=== PATIENT | female | born 1945 | race African-American/Black ===

== ENCOUNTER → 2021-01-07 15:01 | Outpatient (BNVA) | payer MEDICAID, SELFPAY | PROVIDERS: PCP Internal Medicine; Visit Provider Nurse Practitioner Family | DX: M25.552 Pain in left hip (principal); I10 Essential (primary) hypertension; L89.159 Pressure ulcer of sacral region, unspecified stage; Z99.3 Dependence on wheelchair; Z79.899 Other long term (current) drug therapy | CPT/HCPCS: 99202 ==

== ENCOUNTER 2021-03-11 18:51 | Outpatient (REF) | payer MEDICAID, SELFPAY ==
--- NOTE | ~2021-03-11 | MR_ITS ---
EXAMINATION: MR BRAIN WITHOUT CONTRAST CLINICAL INFORMATION: Parkinson's disease. Cognitive function abnormalities. COMPARISON: None available. TECHNIQUE: MRI of the brain was obtained using routine sequences without contrast. FINDINGS: No focal restricted diffusion is demonstrated to suggest acute or subacute cerebral ischemia. No evidence of acute or chronic hemorrhagic products on heme-sensitive imaging. Scattered periventricular, deep white matter, and brainstem T2 FLAIR hyperintensities consistent with mild to moderate underlying microangiopathy. Proportional prominence of the ventricles and sulcal spaces without evidence of obstructive hydrocephalus. No abnormal mass effect. No midline shift. Normal appearance of the pituitary gland. Normal positioning of the cerebellar tonsils. Normal arterial and venous vascular flow voids are present. Normal, homogeneous marrow signal. Mild mucosal thickening of the paranasal sinuses. No signal abnormalities within the mastoids. MR/MR head/brain wo con IMPRESSION: 1. No acute intracranial abnormalities. 2. Mild to moderate underlying microangiopathy and generalized cerebral volume loss.
== END 2021-03-11 18:52 | disposition home or self-care (01) ==
LOC: HO.MRI 18:51
PROVIDERS: PCP Internal Medicine; Visit Provider Psychiatry & Neurology Neurology
DX: G20 Parkinson's disease (principal); R41.89 Other symptoms and signs involving cognitive functions and awareness; R32 Unspecified urinary incontinence
CPT/HCPCS: 70551

== ENCOUNTER 2021-03-24 16:25 | Outpatient (REF) | payer MEDICAID, SELFPAY ==
[2021-03-24 18:00] LABS: Vitamin B12 1260 pg/mL (200-900)
[2021-03-24 18:19] LABS: Erythrocyte Sedimentation Rate 7 MM/HR (0-20)
== END 2021-03-24 16:26 | disposition home or self-care (01) ==
LOC: HO.LAB 16:25
PROVIDERS: PCP Internal Medicine; Visit Provider Psychiatry & Neurology Neurology
DX: G20 Parkinson's disease (principal)
CPT/HCPCS: 36415; 82550; 82607; 85652

== ENCOUNTER 2024-09-05 16:13 | Outpatient (AMB) | payer MEDICARE, MEDICAID, SELFPAY ==
--- NOTE | 2024-09-05 16:20 | A.OFFVIS_ITS ---
Intake Visit Reasons: 1 YR/CPS Allergies No Known Allergies Allergy (Verified 05/17/24 15:32) Medication List - Last Reconciled 09/05/24 by Preet Gunter MD aspirin 81 mg PO Q3W atorvastatin (Lipitor) 10 mg PO Q3W carbidopa-levodopa 25-250 mg 2 tabs PO TID divalproex 250 mg PO DAILY levothyroxine (Tirosint) 75 mcg PO DAILY losartan 50 mg PO DAILY HPI Comments Details: 79 yo man woman with short term memory problems, fluctuating mental status regarding memory, difficulty walking with parkinsonian features, benign visual hallucinations, and sometimes fluctuating mood with agitation. She also has complex partial seizure disorder (shaking and confusion), and left sided ptosis. She was seen two hours after the dose. 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 HEENT:?No headache, vision changes, hearing loss, nasal congestion, sore throat. Neurological:?Difficulty walking and balancing. Psychiatric:?Visual hallucinations. Endocrine:?No heat/cold intolerance, polydipsia, polyuria, or hair/skin changes. Hematologic/Lymphatic:?No easy bruising, bleeding, or lymphadenopathy. Integumentary (Skin):?No rash, lesions, itching, or color changes. ? Physical Exam Neuro Other: Mental Status: Alert and oriented to person, place, and time. Cranial Nerves: CN II: Visual rodriges full to confrontation, visual acuity intact. CN III, IV, : Pupils equal, round, reactive to light and accommodation. Extraocular movements are normal. CN V: Facial sensation is normal. CN VII: Facial movements symmetrical. CN VIII: Hearing intact to bedside conversation is normal. CN IX, X: Palate elevates symmetrically. CN XI: Shoulder shrug and head turn symmetrical. CN XII: Tongue midline without atrophy or fasciculations. Gait and Station: Mild gait ataxia Extrapyramidal: Decreased facial exp and blinking. Mild gait ataxia. Speech: Normal; no dysarthria or tremor. Assessment & Plan Assessment & Plan (1) Complex partial seizure disorder: Code(s): G40.209 - Localization-related (focal) (partial) symptomatic epilepsy and epileptic syndromes with complex partial seizures, not intractable, without status epilepticus Category: Medical (2) Parkinson disease: Comment: Ach R Abs at [facility] in July 2022: all three ok NCV/EMG LEs at off in Jan 2021: Bilateral moderately severe peroneal neurpathy. EEG at off in Jan 2021: WNL MRI brain WO at [facility] in Jan 2021: mild MVD, mild atrophy. Code(s): G20.A1 - Parkinson's disease without dyskinesia, without mention of fluctuations Category: Medical Qualifiers: Dyskinesia presence: without dyskinesia Fluctuating manifestations: with fluctuating manifestations Qualified Code(s): G20.A2 - Parkinson's disease without dyskinesia, with fluctuations (3) Dementia with Lewy bodies: Code(s): G31.83 - Neurocognitive disorder with Lewy bodies; F02.80 - Dementia in other diseases classified elsewhere, unspecified severity, without behavioral disturbance, psychotic disturbance, mood disturbance, and anxiety Category: Medical Qualifiers: Dementia severity: moderate Dementia behavioral or psychological symptom: with other behavioral disturbance Qualified Code(s): G31.83 - Neurocognitive disorder with Lewy bodies; F02.B18 - Dementia in other diseases classified elsewhere, moderate, with other behavioral disturbance Plan Impression: a: Dementia with Lewy bodies b: Parkinsonism c: Complex partial seizure disorder d: Benign hallucinations related to dementia Rec: a: DC 25/250 strength carbidopa/levodopa b: Start 50/200 carbidopa/levodopa one tab 3 times a day c: Continue Divalproex acid 250mg one at night d: No med for dementia for now e: Exposure to daylight daily, preferably in am Medications: New divalproex 250 mg PO DAILY 90 tabs 0RF [id number]-lwjhdngc-mctxoewzrn 50-200-200 mg 1 tab PO TID 90 tabs 0RF Coding Level of Care Code Tele Est Pt Level 4 (10413) Diagnoses Complex partial seizure disorder G40.209 Parkinson's disease without dyskinesia, with fluctuating manifestations G20.A2 Dyskinesia presence: without dyskinesia Fluctuating manifestations: with fluctuating manifestations Moderate Lewy body dementia with other behavioral disturbance G31.83; F02.B18 Dementia severity: moderate Dementia behavioral or psychological symptom: with other behavioral disturbance
== END 2024-09-05 16:55 | disposition home or self-care (01) ==
LOC: HO.HSM 16:13
PROVIDERS: PCP Internal Medicine; Visit Provider Psychiatry & Neurology Neurology
DX: G40.209 Localization-related (focal) (partial) symptomatic epilepsy and epileptic syndromes with complex partial seizures, not intractable, without status epilepticus (principal); G20.A2 Parkinson's disease without dyskinesia, with fluctuations; G31.83 Neurocognitive disorder with Lewy bodies; F02.B18 Dementia in other diseases classified elsewhere, moderate, with other behavioral disturbance
CPT/HCPCS: 99214

== ENCOUNTER → 2024-09-05 16:13 | Outpatient (BNVA) | payer MEDICARE, MEDICAID, SELFPAY | PROVIDERS: PCP Internal Medicine; Visit Provider Psychiatry & Neurology Neurology | DX: G40.209 Localization-related (focal) (partial) symptomatic epilepsy and epileptic syndromes with complex partial seizures, not intractable, without status epilepticus (principal); G20.A2 Parkinson's disease without dyskinesia, with fluctuations; G31.83 Neurocognitive disorder with Lewy bodies; F02.B18 Dementia in other diseases classified elsewhere, moderate, with other behavioral disturbance | CPT/HCPCS: 99212 ==

== ENCOUNTER 2024-10-31 15:40 | Outpatient (AMB) | payer MEDICARE, MEDICAID, SELFPAY ==
--- NOTE | 2024-10-31 15:41 | MHC.OFFVIS ---
Intake Visit Reasons: 2M Allergies No Known Allergies Allergy (Verified 05/17/24 15:32) HPI Comments Details: 79 yo man woman with parkinsonism, complex partial seizure disorder (shaking and confusion), probably dementia with Lewy bodies and left sided ptosis. She is presenting with Parkinson's Disease and associated behavioral changes. Her current treatment includes carbidopa/levodopa, but symptoms persist, necessitating dosage adjustments to four times a day starting at 9 AM. The ongoing tremors appear around 4 PM, indicating difficulties in managing rigidities. She also confronts increased defensiveness and argumentativeness. Her Depakote dosage may require adjustment to twice daily, monitoring for adverse effects such as dizziness or sluggishness. Despite the behavioral changes, there is no combative conduct noted. Hyperlipidemia is managed with Lipitor, which is not essential to maintain at this stage. 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 - Behavioral: Reports increased defensiveness and argumentativeness. Assessment & Plan Assessment & Plan (1) Parkinsonism: Code(s): G20.C - Parkinsonism, unspecified Category: Medical Qualifiers: Parkinsonism type: unspecified Qualified Code(s): G20.C - Parkinsonism, unspecified Plan: I discussed the current state of the patient's Parkinson's Disease and associated behavioral changes. We deliberated on increasing carbidopa/levodopa dosage to four times daily to manage symptom surges apparent by late afternoon. Regarding behavioral symptoms, we agreed that Depakote would be taken twice daily, with a monitoring period to note any adverse effects or necessary adjustments. If the increased Depakote dosage does not yield improvement, alternatives like Memantine will be considered. We outlined potential side effects and set a follow-up visit to evaluate the changes. No significant consent issues were noted regarding these medication adjustments. (2) Complex partial seizure disorder: Code(s): G40.209 - Localization-related (focal) (partial) symptomatic epilepsy and epileptic syndromes with complex partial seizures, not intractable, without status epilepticus Category: Medical (3) Dementia with Lewy bodies: Code(s): G31.83 - Neurocognitive disorder with Lewy bodies; F02.80 - Dementia in other diseases classified elsewhere, unspecified severity, without behavioral disturbance, psychotic disturbance, mood disturbance, and anxiety Category: Medical Qualifiers: Dementia severity: moderate Dementia behavioral or psychological symptom: with other behavioral disturbance Qualified Code(s): G31.83 - Neurocognitive disorder with Lewy bodies; F02.B18 - Dementia in other diseases classified elsewhere, moderate, with other behavioral disturbance Plan Impression: a: Dementia with Lewy bodies b: Parkinsonism c: Complex partial seizure disorder d: Benign hallucinations related to dementia Rec: a: Start 50/200 carbidopa/levodopa one tab 4 times a day b: Continue Divalproex acid 250mg one at night c. Memantine 5mg bid, if depakote will not improve behavior Coding Level of Care Code Est Pt Level 4 (12199) Diagnoses Parkinsonism, unspecified Parkinsonism type G20.C Parkinsonism type: unspecified Complex partial seizure disorder G40.209 Moderate Lewy body dementia with other behavioral disturbance G31.83; F02.B18 Dementia severity: moderate Dementia behavioral or psychological symptom: with other behavioral disturbance
--- OUTSIDE RECORDS SUMMARY | 2024-10-31 17:39 | XMS_ITS | Clinical Summary ---
Author Organization [facility] Facility Address [address] [place] [id number] Care Team Providers Care Bag Worker Name Role Phone Jessica Nguyen MD Primary Care Provider [phone] Allergies No known active allergies Medications omeprazole (PriLOSEC) [address] capsule Take 20 mg by mouth 1 (one) time each day Do not crush or chew. Active ferrous sulfate 325 (65 Fe) MG EC tablet Take 325 mg by mouth in the morning and 325 mg at noon and 325 mg in the evening. Take with meals. Do not crush, chew, or split. . Active Multiple Vitamin (Multivitamin Adult) tablet Take 1 tablet by mouth 1 (one) time each day Active carbidopa-levod opa (SINEMET) 25-250 MG per tablet Take 1 tablet by mouth in the morning and 1 tablet at noon and 1 tablet in the evening. 1 Active TURMERIC CURCUMIN PO Take 900 mg by mouth 1 (one) time each day Active POLYETHYLENE GLYCOL 3350 PO Take by mouth if needed Active Camphor-Menthol -Methyl Woody 3.1-6-10 % patch Apply topically if needed Active Diclofenac Sodium 1 % gel Apply topically if needed Active sertraline (ZOLOFT) 25 MG tablet Take 25 mg by mouth 1 (one) time each day 2 Active losartan (COZAAR) 50 MG tablet Take 50 mg by mouth 1 Active acetaminophen (Tylenol 8 Hour Arthritis Pain) 650 MG 8 hr tablet Take 650 mg by mouth every 8 (eight) hours if needed for mild pain Do not crush, chew, or split. 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 Social History Tobacco Use Types Packs/Day Years Used Date Smoking Tobacco: Never Smokeless Tobacco: Never Alcohol Use Standard Drinks/Week Comments Never 0 (1 standard drink = 0.6 oz pur e alcohol) Comments Unknown Sex and Gender Information Value Date Recorded Sex Assigned at Not on file Legal Sex Female 2:47 PM EST Gender Identity Not on file Sexual Orientation Not on file Last Filed Vital Signs Vital Sign Reading Time Taken Comments Blood Pressure 162/80 03/30/2021 9:11 AM EST Pulse 80 03/30/2021 9:11 AM EST Temperature - - Respiratory Rate - - Oxygen Saturation 98% 03/30/2021 9:11 AM EST Inhaled Oxygen Concentration - - Weight 55.3 kg (122 lb) 03/30/2021 9:11 AM EST Height 152.4 cm (5') 03/30/2021 9:11 AM EST Body Mass Index 23.83 03/30/2021 9:11 AM EST Plan of Treatment Health Maintenance Due Date Last Done Comments Pneumococcal Vaccine: 50+ Ye ars (1 of 1 - PCV) 1993 Influenza Vaccine (#1) 2024 Hepatitis B Vaccine Aged Out No longe r eligible based on patient's age to complete this topic Insurance Medicaid [place] Medicaid [place] Care Teams Bag Worker Relationship Specialty Start Date End Date Jessica Nguyen MD [address] [facility] [address] [place] [address] PCP - General Internal Medicine 02/09/21
--- OUTSIDE RECORDS SUMMARY | 2024-10-31 17:39 | XMS_ITS | Encounter Summary ---
Author Organization [facility] Address [address] [place] [address] Care Team Providers Care Live Study Manager Name Role Phone Jessica Nguyen MD Primary Care Provider [phone] Encounter Details Date Type Department Care Team (Late st Contact Info) Description 10/17/2024 Telephone Internal Medicine - [place] [address] [place] [phone] Jessica Nguyen MD [address] [place] [address] Social History Tobacco Use Types Packs/Day Years Used Date Smoking Tobacco: Never Smokeless Tobacco: Never Alcohol Use Standard Drinks/Week Comments Never 0 (1 standard drink = 0.6 oz pur e alcohol) Comments Unknown Sex and Gender Information Value Date Recorded Sex Assigned at Not on file Legal Sex Female 8:26 PM EST Gender Identity Not on file Sexual Orientation Not on file documented as of this encounter Progress Notes * Ashanti Cantu MA - 10/17/2024 4:14 PM EDT PT was seen by All. Please advice roro Soto [phone] Requesting cb regarding high vitamin b12 levels from recent labwork. What are the next steps? * Bhavya Rand - 10/17/2024 3:52 PM EDT roro Soto [phone] Requesting cb regarding high vitamin b12 levels from recent labwork. What are the next steps? Please advise, ty documented in this encounter Plan of Treatment Upcoming Encounters Date Type Department Care Team (Late st Contact Info) Description 08/28/2025 4:00 PM EDT Office Visit Internal Medicine - [place] [address] [facility] [address] [place] [phone] All Parker, LUIS ALBERTO [address] [place] [address] documented as of this encounter Visit Diagnoses Not on filedocumented in this encounter Additional Health Concerns Assessment Noted Time PHQ-9 Depression Total Score: 9 09/18/19 3:38 PM EDT documented as of this encounter Care Teams Live Study Manager Relationship Specialty Start Date End Date Jessica Nguyen MD [address] [facility] [address] [place] [phone] PCP - General Internal Medicine 08/21/24 documented as of this encounter
--- OUTSIDE RECORDS SUMMARY | 2024-10-31 17:39 | XMS_ITS | Clinical Summary ---
Author Organization [address] [place] [address] Address [address] [place] [address] Phone Care Team Providers Care Formulator Compounder Name Role Phone Jessica Nguyen MD Primary Care Provider [phone] Allergies No known active allergies Medications acetaminophen (TYLENOL ARTHRITIS PAIN ORAL) Take by mouth as needed. Active aspirin 81 mg EC tablet Take 1 Tablet by mouth three times a week. Active camphor-methyl salicyl-menthoL (Salonpas) 3.1-10-6 % adhesive patch,medicated Apply topically as needed. Active loratadine (CLARITIN) 10 mg tablet Take 1 Tablet by mouth as needed. 4 Active losartan (COZAAR) 50 mg tablet Take 1 Tablet by mouth as needed. Active multivitamin tablet Take 1 tablet by mouth daily. Active levothyroxine sodium (Tirosint) 75 mcg capsuleIndications :Postoperative hypothyroidism Take 1 capsule (75 mcg total) by mouth 1 (one) time each day. 45 capsule 1 5 Active hydrOXYzine HCL (ATARAX) 10 mg tabletIndications: Anxiety Take 1 tablet (10 mg total) by mouth at bedtime as needed for itching. 30 tablet 11 5 Active busPIRone (BUSPAR) 5 mg tabletIndications: Anxiety Take 1 tablet (5 mg total) by mouth 2 (two) times a day if needed (anxiety). 30 each 11 5 026 Active pilocarpine (Salagen, pilocarpine,) 5 mg tabletIndications: Dry mouth Take 1 tablet (5 mg total) by mouth at bedtime as needed (dry mouth). 30 each 11 5 026 Active divalproex (DEPAKOTE) [address] tablet Take 1 tablet (250 mg total) by mouth 1 (one) time each day. 5 Active glycopyrrolate (ROBINUL) 1 mg tablet TAKE 1 TABLET BY MOUTH TWICE A DAY NEEDED FOR SECRETIONS 5 Active CARBIDOPA-LEVODOPA ORAL Take 200 mg by mouth 3 (three) times a day. Active cholecalciferol (VITAMIN D-3) 50 mcg (2,000 unit) tabletIndications: Vitamin D deficiency Take 1 tablet (2,000 Units total) by mouth 1 (one) time each day. 90 tablet 3 5 Active Active Problems Problem Noted Date Diagnosed Date Gastroesophageal reflux disease 09/26/2024 Iron deficiency anemia 09/26/2024 Hyperlipidemia 08/11/2022 Overview (02/24/2024): Last Assessment & Plan: Her primary care in [place] decreased her atorvastatin to 40 mg 3 days a week because of myalgia side effects on daily dosing, I think this is fine in light of advanced age and comorbidities-continue this regimen Venous insufficiency 08/11/2022 Overview (02/24/2024): -She was having a lot of issues with lower extremity edema. In fact, she was seen in the ER at [facility] on 11/27/2020. At the time, she was probably eating more salt -She actually also had an ultrasound of her lower extremities on 11/28/2020 which was negative for DVTs bilaterally Last Assessment & Plan: Recently well controlled, no further recommendations at this time Dizziness and giddiness 11/06/2021 Overview (09/26/2024): Dizziness and giddiness; Note: Date Diagnosed: 11/06/2021 2:48 PM (R42) Sensorineural hearing loss (SNHL) of both ears 0 11/06/2021 Overview (09/26/2024): Sensorineural hearing loss, bilateral; Note: Date Diagnosed: 11/06/2021 3:10 PM (H90.3) Otalgia of left ear 10/13/2021 Overview (09/26/2024): Otalgia, left ear; Note: Date Diagnosed: 10/13/2021 6:23 PM (H92.02) Postoperative hypothyroidism 08/26/2021 Dyspnea on exertion 05/05/2021 Overview (02/24/2024): -Occurs with activity such as walking with her walker in the house, going up stairs-in retrospect, I think a lot of it had to do with 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 goiter in addition to advanced age, deconditioning- Symptoms greatly improved post thyroidectomy -Has had a recent negative ischemic work-up and reassuring echo during hospitalization at [facility] in March 2021 -Has been gradually developing over several years-denies chest pain symptoms with it -Pharmacologic nuclear stress test on 04/13/2021 showed normal perfusion, normal ejection fraction and regional wall motion, EF calculated at greater than 70% Last Assessment & Plan: Persists only to a minor degree and likely related to aging and deconditioning, patient is euvolemic on exam, no further work-up at this time Type 2 myocardial infarction (CMS/HCC V24, CMS/H CC V28) 05/05/2021 Overview (02/24/2024): Last Assessment & Plan: Continue medical management. No anginal symptoms or evidence of heart failure. Continue atorvastatin 40, baby aspirin. Autonomic neuropathy 03/30/2021 Syncope and collapse 02/06/2021 Overview (02/24/2024): - Negative work-up for cardiac causes, likely secondary to supine hypertension and orthostatic hypotension with possible contribution from Parkinson's disease itself or at least antiparkinsonian drugs -She has had about 3 episodes of syncope dating back to Erica of 2021. The first episode was on November 18. She was sitting down on the couch watching TV. She may have been a bit dehydrated that day. All of a sudden she felt herself getting clammy and her vision went dark. She told her other daughter who is not present. By the time her other daughter turned around, the patient was slumped over. She was very fatigued but did not fully lose consciousness -The second episode happened exactly a month later on December 18. She was again sitting in front of the TV. Her daughter Yara was bringing in a medication that she often has difficulty swallowing. Just the notion of the medication coming towards her made her very anxious. She is apt to get anxious with these types of things. All of a sudden she started hyperventilating and again felt lightheaded, had her vision go dark and slumped over -The third episode happened shortly thereafter on January 03. She was sitting at the breakfast table this time. She suddenly asked her daughter who was standing at the kitchen for a glass of water. The tone of her voice-being very weak and fatigued made her daughter turn around. At that point she noted that the patient had a glazed look in her eye and started to slump over. Again she did not fully lose consciousness this time -As a part of her cardiac work-up related to this, I ordered a Holter monitor to assure that she did not have any high-grade AV block, significant pauses or severe bradycardia contributing to her symptoms as well as an echocardiogram to assess for structural heart disease or other syndrome such as hypertrophic cardiomyopathy given murmur heard on exam -Echocardiogram most recently during her hospitalization at [facility] from 04/12/2021 showed mild, concentric left ventricular hypertrophy with normal LV cavity size and systolic function, normal regional wall motion with an ejection fraction of 55 to 60%, normal RV size and systolic function, no hemodynamically significant valve disease -Holter monitor on 02/06/2021 showed sinus rhythm with an average heart rate of 65 bpm with a range of 43 to 100 bpm with sinus bradycardia for 10-1/2 of the 24 hours but no significant pauses, no high-grade AV block, rare APCs and one atrial pair, frequent PVCs with rare couplets, 1 triplet, rare ventricular bigeminy and trigeminy-overall burden of PVCs only 1.8%, symptoms of shortness of breath on the stairs correlating to normal sinus rhythm - Switched her to ARB for blood pressure control and that to only as needed and we have been more liberal with our targets for blood pressure control-allowing for higher blood pressures at rest of less than 150 or even 160 systolic over 90 diastolic Last Assessment & Plan: No major episodes since our last visit, as needed losartan not really necessary. Continue as needed dosing only. Continue behavioral modifications to the extent that it is possible given the patient's dementia including slow postural changes, adequate oral hydration, avoidance of severely hot or humid temperatures. Hypertension 01/14/2021 Overview (02/24/2024): -Has been seeing Dr. Braga of nephrology-I have his most recent note but do not have the official copy of the 24 amb BP monitor -Her daughter has a copy of the report however and tells me that the average blood pressure over 24 hours was 150/77 mmHg however there are wild swings with some as low as 90 systolic and some is high as 170s to 180s systolic Last Assessment & Plan: As needed losartan as above. Parkinsonism (CMS/HCC V24, CMS/HCC V28) 01/15/20 21 Reflux esophagitis 01/14/2021 Thyromegaly 01/14/2021 Encounters Date Type Department Care Team Description 10/31/2024 Telephone Internal Medicine [facility] [address] [phone] Jessica Nguyen MD 10/18/[facility] [address] [phone] Vinny Lim MD 10/17/2024 Telephone Internal Medicine [facility] [address] [phone] Jessica Nguyen MD 10/17/2024 Telephone Internal Medicine [facility] [address] [phone] Jessica Nguyen MD 09/26/2024 3:45 PM EDT Consult Pulmonolgy [facility] [address] [phone] Vinny Lim MD Snoring (Primary Dx); Chronic fatigue; Primary hypertension 09/24/2024 Telephone Gastroenterology - [place] 175 [facility] 175 [facility] [address] [place] [address] Barbra Augustine PA 09/20/2024 10:20 AM EDT Office Visit [facility] [address] [facility] [address] [place] [phone] Eugenie Quintero MD Syncope and collapse (Primary Dx); Hyperlipidemia, unspecified hyperlipidemia type; Primary hypertension 09/19/2024 3:00 PM EDT Consult Gastroenterology - [place] 175 [facility] 175 [facility] [address] [place] [address] Barbra Augustine PA Oral phase dysphagia (Primary Dx); Parkinsonism, unspecified Parkinsonism type (CMS/HCC V24, CMS/HCC V28); Snoring; Dysphagia, unspecified type 09/17/2024 3:45 PM EDT Office Visit Internal Medicine - [place] 175 [facility] [address] [place] [phone] All Parker NP Primary hypertension (Primary Dx); Hyperlipidemia, unspecified hyperlipidemia type; Hypothyroidism, unspecified type; Parkinsonism, unspecified Parkinsonism type (CMS/HCC V24, CMS/HCC V28); Lewy body dementia, unspecified dementia severity, unspecified whether behavioral, psychotic, or mood disturbance or anxiety (CMS/HCC V24, CMS/HCC V28); Constipation, unspecified constipation type; Seasonal allergies; Generalized weakness; Anxiety; Snoring; Dry mouth; Dysphagia, unspecified type; Screening for ischemic heart disease; Screening for diabetes mellitus; Vitamin B12 deficiency; Vitamin D deficiency; Healthcare maintenance 08/23/2024 Telephone Endocrinology [address] [phone] Ayanna Caputo MD 08/21/2024 4:30 PM EDT Office Visit Endocrinology [address] [phone] Ayanna Caputo MD Postoperative hypothyroidism (Primary Dx) from Last 3 Months Family History Medical History Relation Name Comments No Known Problems Father No Known Problems Mother Relation Name Status Comments Father Mother Social History Tobacco Use Types Packs/Day Years Used Date Smoking Tobacco: Never Smokeless Tobacco: Never Tobacco Cessation:Counseling Given: Not Answered Alcohol Use Standard Drinks/Week Comments Never 0 (1 standard drink = 0.6 oz pur e alcohol) Comments Unknown Sex and Gender Information Value Date Recorded Sex Assigned at Not on file Legal Sex Female 8:26 PM EST Gender Identity Not on file Sexual Orientation Not on file Obstetrics History Last Filed Vital Signs Vital Sign Reading Time Taken Comments Blood Pressure 138/83 09/26/2024 3:45 PM EDT Pulse 63 09/26/2024 3:45 PM EDT Temperature 36.7 C (98 F) 09/26/2024 3:45 PM EDT Respiratory Rate 20 09/26/2024 3:45 PM EDT Oxygen Saturation 100% 09/26/2024 3:45 PM EDT Inhaled Oxygen Concentration - - Weight 54 kg (119 lb) 09/26/2024 3:45 PM EDT Height 148.6 cm (4' 10.5 ) 09/26/2024 3:45 PM ED T Body Mass Index 24.45 09/26/2024 3:45 PM EDT Plan of Treatment Upcoming Encounters Date Type Department Care Team (Late st Contact Info) Description 08/28/2025 4:00 PM EDT Office Visit Internal Medicine - [address] [place] [address] All Parker NP [address] [place] [phone] Health Maintenance Due Date Last Done Comments DTaP,Tdap,and Td Vaccines (1 - Tdap) 1964 Pneumococcal Vaccine: 50+ Years (1 of 1 - PCV) 1993 Zoster Vaccines (1 of 2) 1993 RSV Immunization Adult Patients (1 - 1-dose 75+ series) 2018 Falls Risk Assessment 02/07/2022 Medicare Annual Wellness Visit 02/07/2022 Osteoporosis Screening (Bone Density Screening) 02/07/2022 Social Influencers of Health Screening 02/07/2022 COVID-19 Vaccine ( - 2023-2 5 season) 2024 Influenza Vaccine (#1) 2024 Hypertension/CHF/CAD Annual BMP Blood Test 09/25/2025 09/25/2024, 10/18/2023, 10/18/2023 Cholesterol Screening (Lipid Panel) 09/25/2029 09/25/2024, 08/04/2023 Depression Screening Completed 09/17/2024 HIB Vaccines Aged Out No longer eligi ble based on patient's age to complete this topic HPV Vaccines Aged Out No longer eligi ble based on patient's age to complete this topic Hepatitis A Vaccines Aged Out No long er eligible based on patient's age to complete this topic Hepatitis B Vaccines Aged Out No long er eligible based on patient's age to complete this topic IPV Vaccines Aged Out No longer eligi ble based on patient's age to complete this topic MMR Vaccines Aged Out No longer eligi ble based on patient's age to complete this topic Meningococcal ACWY Vaccine Aged Out N o longer eligible based on patient's age to complete this topic Meningococcal B Vaccine Aged Out No l onger eligible based on patient's age to complete this topic RSV Immunization Patients Under 20 months Aged Out No longer eligible b ased on patient's age to complete this topic Varicella Vaccines Aged Out No longer eligible based on patient's age to complete this topic Procedures Procedure Name Priority Date/Time Associated Diagnosis Comments VITAMIN D 25 HYDROXY Routine 09/25/2024 10:01 AM EDT Vitamin D deficiency VITAMIN B12 Routine 09/25/2024 10:01 AM EDT Vitamin B12 deficiency MAGNESIUM Routine 09/25/2024 10:01 AM EDT Healthcare maintenance THYROID STIMULATING HORMONE WITH REFLEX TO FREE T4 AND FREE T3 Routine 09/25/2024 10:01 AM EDT Hypothyroidism, unspecified type HEMOGLOBIN A1C Routine 09/25/2024 10:01 AM EDT Screening for diabetes mellitus COMPREHENSIVE METABOLIC PANEL Routine 09/25/2024 10:01 AM EDT Healthcare maintenance COMPLETE BLOOD COUNT Routine 09/25/2024 10:01 AM EDT Healthcare maintenance LIPID PANEL WITH REFLEX TO DIRECT LDL Routine 09/25/2024 10:01 AM EDT Screening for ischemic heart disease THYROXINE FREE Routine 09/25/2024 10:01 AM EDT Postoperative hypothyroidism ECG 12-LEAD Routine 09/20/2024 10:40 AM EDT Syncope and collapse THYROID STIMULATING HORMONE Routine 08/21/2024 4:56 PM EDT Postoperative hypothyroidism THYROXINE FREE Routine 08/21/2024 4:56 PM EDT Postoperative hypothyroidism from Last 3 Months Results * Thyroid stimulating hormone with reflex to free t4 and free t3 (09/25/2024 10:01 AM EDT) TSH 2.19 0.40 - 4.00 mcIU/mL LAB CHEMISTRY METHOD 09/25/2024 2:31 PM EDT [facility] Blood Venous blood specimen / Unknown Venipuncture / Unknown 09/25/2024 10:01 AM EDT 09/25/2024 11:17 AM EDT us All Parker NP LAB BLOOD ORDERABLES Final Resul t [facility] [address] [place] [address], [place] [phone] * (ABNORMAL) Lipid panel with reflex to direct LDL (09/25/2024 10:01 AM EDT) Cholesterol 190 0 - 200 mg/dL LAB CHEMISTRY METHOD 09/25/2024 1:04 PM EDT [facility] Triglycerides 53 0 - 150 mg/dL LAB CHEMISTRY METHOD 09/25/2024 1:04 PM EDT [facility] HDL 72 >=40 mg/dL LAB CHEMISTRY METHOD 09/25/2024 1:04 PM EDT [facility] LDL Calculated 107(H) 0 - 100 mg/dL LAB CHEMISTRY METHOD 09/25/2024 1:04 PM EDT [facility] VLDL Cholesterol Hai 10.6 mg/dL LAB CHEMISTRY METHOD 09/25/2024 1:04 PM EDT [facility] Non HDL Chol. (LDL+VLDL) 118 <145 mg/dL LAB CHEMISTRY METHOD 09/25/2024 1:04 PM EDT [facility] Chol/HDL Ratio 2.6 0.0 - 4.4 LAB CHEMISTRY METHOD 09/25/2024 1:04 PM EDT [facility] Blood Venous blood specimen / Unknown Venipuncture / Unknown 09/25/2024 10:01 AM EDT 09/25/2024 11:17 AM EDT All Parker NP LAB BLOOD ORDERABLES Final Resul t Performing Organization Address City/[facility]/ZIP Co de Phone Number [facility] [address] [place] [address], [place] [phone] * (ABNORMAL) Vitamin D 25 hydroxy (09/25/2024 10:01 AM EDT) Pathologist [facility] Vit D, 25-Hydroxy 26.5(L) 30.0 - 80.0 ng/mL LAB CHEMISTRY METHOD 09/25/2024 2:30 PM EDT [facility] Blood Venous blood specimen / Unknown Venipuncture / Unknown 09/25/2024 10:01 AM EDT 09/25/2024 11:17 AM EDT us All Parker NP LAB BLOOD ORDERABLES Final Resul t [facility] [address] [place] [address], [place] [phone] * (ABNORMAL) Complete blood count (09/25/2024 10:01 AM EDT) WBC 6.8 4.8 - 10.8 K/mcL LAB HEMETOLOGY METHOD 09/25/2024 11:[address] [facility] RBC 3.90 3.80 - 4.80 M/mcL LAB HEMETOLOGY METHOD 09/25/2024 11:[address] [facility] Hemoglobin 12.6 11.5 - 16.0 g/dL LAB HEMETOLOGY METHOD 09/25/2024 11:[address] [facility] Hematocrit 39.5 35.0 - 47.0 % LAB HEMETOLOGY METHOD 09/25/2024 11:[address] [facility] MCV 101.3(H) 79.0 - 98.0 FL LAB HEMETOLOGY METHOD 09/25/2024 11:[address] [facility] MCH 32.3(H) 27.0 - 32.0 pcg LAB HEMETOLOGY METHOD 09/25/2024 11:[address] [facility] MCHC 31.9(L) 32.0 - 37.0 g/dL LAB HEMETOLOGY METHOD 09/25/2024 11:[address] [facility] RDW 13.5 11.0 - 15.0 % LAB HEMETOLOGY METHOD 09/25/2024 11:[address] [facility] Platelets 241 130 - 400 K/mcL LAB HEMETOLOGY METHOD 09/25/2024 11:[address] [facility] MPV 10.6 7.0 - 11.0 FL LAB HEMETOLOGY METHOD 09/25/2024 11:[address] [facility] NRBC 0.0 <1.0 % LAB HEMETOLOGY METHOD 09/25/2024 11:[address] [facility] NRBC Absolute 0.00 <0.10 K/mcL LAB HEMETOLOGY METHOD 09/25/2024 11:[address] [facility] Blood Venous blood specimen / Unknown Venipuncture / Unknown 09/25/2024 10:01 AM EDT 09/25/2024 11:18 AM EDT All Parklisha [employer] ENGINEER LAB BLOOD ORDERABLES Final Resul t Performing Organization Address [facility] Co de Phone Number [facility] [address] [place] [address], [place] [phone] * Thyroxine free (09/25/2024 10:01 AM EDT) Only the most recent of2 resultswithin the time period is included. Free T4 1.33 0.70 - 1.80 ng/dL LAB CHEMISTRY METHOD 09/25/2024 2:31 PM EDT [facility] Blood Venous blood specimen / Unknown Venipuncture / Unknown 09/25/2024 10:01 AM EDT 09/25/2024 11:17 AM EDT Ayanna Caputo MD LAB BLOOD ORDERABLES Final Resul t Performing Organization Address [facility] de Phone Number [facility] [address] [place] [address], [place] [phone] * Magnesium (09/25/2024 10:01 AM EDT) Magnesium 2.6 1.9 - 2.6 mg/dL LAB CHEMISTRY METHOD 09/25/2024 12:34 PM EDT [facility] Blood Venous blood specimen / Unknown Venipuncture / Unknown 09/25/2024 10:01 AM EDT 09/25/2024 11:17 AM EDT All Parker W[employer]ING [employer] ENGINEER LAB BLOOD ORDERABLES Final Resul t Performing Organization Address [facility]/ZIP Co de Phone Number [facility] [address] [place] [address], [place] [phone] * Hemoglobin A1c (09/25/2024 10:01 AM EDT) Pathologist [facility] Hemoglobin A1C 5.4 <6.5 % LAB CHEMISTRY METHOD 09/25/2024 1:05 PM EDT [facility] Mean Bld Glu Estim. 108 mg/dL LAB CHEMISTRY METHOD 09/25/2024 1:05 PM EDT [facility] Blood Venous blood specimen / Unknown Venipuncture / Unknown 09/25/2024 10:01 AM EDT 09/25/2024 11:18 AM EDT All Parker NP LAB BLOOD ORDERABLES Final Resul t Performing Organization Address City/[facility]/ZIP Co de Phone Number [facility] [address] [place] [address], [place] [phone] * (ABNORMAL) Vitamin B12 (09/25/2024 10:01 AM EDT) [facility] Vitamin B-12 1,357(H) 250 - 900 pcg/mL LAB CHEMISTRY METHOD 09/25/2024 1:04 PM EDT [facility] Blood Venous blood specimen / Unknown Venipuncture / Unknown 09/25/2024 10:01 AM EDT 09/25/2024 11:17 AM EDT All Parker NP LAB BLOOD ORDERABLES Final Resul t [facility] [address] [place] [address], [place] [phone] * (ABNORMAL) Comprehensive metabolic panel (09/25/2024 10:01 AM EDT) [facility] Sodium 141 133 - 145 mmol/L LAB CHEMISTRY METHOD 09/25/2024 1:04 PM EDT [facility] Potassium 3.8 3.5 - 5.5 mmol/L LAB CHEMISTRY METHOD 09/25/2024 1:[address] [facility] Chloride 107 96 - 110 mmol/L LAB CHEMISTRY METHOD 09/25/2024 1:[address] [facility] CO2 28 21 - 32 mmol/L LAB CHEMISTRY METHOD 09/25/2024 1:[address] [facility] Anion Gap 6 3 - 11 LAB CHEMISTRY METHOD 09/25/2024 1:[address] [facility] Glucose 84 70 - 100 mg/dL LAB CHEMISTRY METHOD 09/25/2024 1:[address] [facility] BUN 12 5 - 25 mg/dL LAB CHEMISTRY METHOD 09/25/2024 1:[address] [facility] Creatinine 0.79 0.50 - 1.10 mg/dL LAB CHEMISTRY METHOD 09/25/2024 1:[address] [facility] eGFR 75 >=60 mL/min/1. 73m2 LAB CHEMISTRY METHOD 09/25/2024 1:[address] [facility] Comment:Calculation based on the Chronic Kidney Disease Epidemiology Collaboration (CKD-EPI) equation refit without adjustment for race. BUN/Creatinine Ratio 15.2 LAB CHEMISTRY METHOD 09/25/2024 1:[address] [facility] Calcium 9.3 8.5 - 10.5 mg/dL LAB CHEMISTRY METHOD 09/25/2024 1:[address] [facility] AST (SGOT) 14 10 - 42 unit/L LAB CHEMISTRY METHOD 09/25/2024 1:[address] [facility] ALT (SGPT) 9(L) 10 - 60 unit/L LAB CHEMISTRY METHOD 09/25/2024 1:[address] [facility] Alkaline Phosphatase 67 42 - 121 unit/L LAB CHEMISTRY METHOD 09/25/2024 1:[address] [facility] Total Protein 6.9 6.0 - 8.0 g/dL LAB CHEMISTRY METHOD 09/25/2024 1:04 PM EDT [facility] Albumin 3.6 3.2 - 5.0 g/dL LAB CHEMISTRY METHOD 09/25/2024 1:04 PM EDT [facility] Total Bilirubin 0.6 0.0 - 1.4 mg/dL LAB CHEMISTRY METHOD 09/25/2024 1:04 PM EDT [facility] Blood Venous blood specimen / Unknown Venipuncture / Unknown 09/25/2024 10:01 AM EDT 09/25/2024 11:17 AM EDT us All Parker NP LAB BLOOD ORDERABLES Final Resul t [facility] [address] [place] [address], [place] [phone] * ECG 12 lead (09/20/2024 10:40 AM EDT) Ventricular Rate ECG 52 BPM GEMUSE Atrial Rate 52 BPM GEMUSE P-R Interval 242 ms GEMUSE QRS Duration 124 ms GEMUSE Q-T Interval 460 ms GEMUSE QTc 427 ms GEMUSE P Wave [place] 66 degrees GEMUSE R [place] 0 degrees GEMUSE T [place] -78 degrees GEMUSE ECG Interpretation Sinus bradycardia with 1st degree A-V block Left ventricular hypertrophy with QRS widening Cannot rule out Septal infarct (cited on or before 27-NOV-2020) ST and T wave abnormality, consider lateral ischemia Abnormal ECG When compared with ECG of 10-APR-2021 21:37, ME interval has increased Vent. rate has decreased BY 31 BPM Nonspecific T wave abnormality now evident in Inferior leads T wave inversion more evident in Anterolateral leads Confirmed by EUGENIE QUINTERO ([id number]) on 09/27/2024 1:07:29 PM GEMUSE 09/20/2024 10:4 0 AM EDT 09/27/2024 1:07 PM EDT us Eugenie Quintero MD ECG ORDERABLES Final Result KE[facility] * (ABNORMAL) Thyroid stimulating hormone (08/21/2024 4:56 PM EDT) TSH 0.37(L) 0.40 - 4.00 mcIU/mL LAB CHEMISTRY METHOD 08/21/2024 7:13 PM EDT [facility] [facility] Blood Venous blood specimen / Unknown Venipuncture / Unknown 08/21/2024 4:56 PM EDT 08/21/2024 4:56 PM EDT us Ayanna Caputo MD LAB BLOOD ORDERABLES Final Resul t [facility] [address] [place] [address], [place] [phone] from Last 3 Months Insurance MEDICARE MEDICAID [place] Care Teams Formulator Compounder Relationship Specialty Start Date End Date Jessica Nguyen MD 175 [facility] [address] [place] [phone] PCP - General Internal Medicine 08/21/24
--- OUTSIDE RECORDS SUMMARY | 2024-10-31 17:39 | XMS_ITS | Encounter Summary ---
Author Organization [facility] Address [address] [place] [address] Care Team Providers Care Abrasives Sales Representative Name Role Phone Jessica Nguyen MD Primary Care Provider Reason for Visit * Reason Onset Date Comments Forms/questionnaires 10/31/2024 Adult [facility] Care Encounter Details Date Type Department Care Team (Late st Contact Info) Description 10/31/2024 Telephone Internal Medicine - [place] [address] [facility] [employer] [facility] [employer] [address] [place] [address] Jessica Nguyen MD [address] [place] [phone] Social History Tobacco Use Types Packs/Day Years [...] as of this encounter Progress Notes * Bhavya Rand - 10/31/2024 4:20 PM EDT Eve with [facility] is re-faxing an order form from 10/26 @5:20 pm of the needs for the ptand requires a PCP's signature. Please advise, rory Cb# [phone] documented in this encounter Plan of Treatment Upcoming Encounters Date Type Department Care Team (Late st Contact Info) Description 08/28/2025 4:00 PM EDT Office Visit Internal Medicine - [place] 175 [facility] [address] [place] [address] All Parker, LUIS ALBERTO [address] [place] [address] documented as of this encounter Visit Diagnoses Not on filedocumented in this encounter Additional Health Concerns Assessment Noted Time PHQ-9 Depression Total Score: 9 09/18/19 25 3:38 PM EDT documented as of this encounter Care Teams Abrasives Sales Representative Relationship Specialty Start Date End Date Jessica Nguyen MD 175 [facility] [address] [place] [address] PCP - General Internal Medicine 08/21/24 documented as of this encounter
== END 2024-10-31 16:55 | disposition home or self-care (01) ==
LOC: HO.HSM 15:40
PROVIDERS: PCP Internal Medicine; Visit Provider Psychiatry & Neurology Neurology
DX: G20.C Parkinsonism, unspecified (principal); G40.209 Localization-related (focal) (partial) symptomatic epilepsy and epileptic syndromes with complex partial seizures, not intractable, without status epilepticus; G31.83 Neurocognitive disorder with Lewy bodies; F02.B18 Dementia in other diseases classified elsewhere, moderate, with other behavioral disturbance
CPT/HCPCS: 99214

== ENCOUNTER → 2024-10-31 15:40 | Outpatient (BNVA) | payer MEDICARE, MEDICAID, SELFPAY | PROVIDERS: PCP Internal Medicine; Visit Provider Psychiatry & Neurology Neurology | DX: G40.209 Localization-related (focal) (partial) symptomatic epilepsy and epileptic syndromes with complex partial seizures, not intractable, without status epilepticus (principal); G20.C Parkinsonism, unspecified; G31.83 Neurocognitive disorder with Lewy bodies; F02.B18 Dementia in other diseases classified elsewhere, moderate, with other behavioral disturbance | CPT/HCPCS: 99212 ==

== ENCOUNTER → 2024-11-21 13:56 | Outpatient (BNVA) | payer MEDICARE, MEDICAID, SELFPAY | PROVIDERS: PCP Internal Medicine; Visit Provider Psychiatry & Neurology Neurology | DX: G20.C Parkinsonism, unspecified (principal); G40.209 Localization-related (focal) (partial) symptomatic epilepsy and epileptic syndromes with complex partial seizures, not intractable, without status epilepticus; G31.83 Neurocognitive disorder with Lewy bodies; F02.B18 Dementia in other diseases classified elsewhere, moderate, with other behavioral disturbance | CPT/HCPCS: 99212 ==

== ENCOUNTER → 2024-11-21 13:56 | Outpatient (AMB) | payer MEDICARE, MEDICAID, SELFPAY ==
--- NOTE | 2024-11-21 14:05 | A.OFFVIS_ITS ---
Intake Visit Reasons: SOONER APPT Allergies No Known Allergies Allergy (Verified 05/17/24 15:32) HPI Comments Details: 79 yo man woman with parkinsonism, complex partial seizure disorder (shaking and confusion), probably dementia with Lewy bodies and left sided ptosis. She is presenting with sleep disorder and related behavioral disturbances. Recently, the patient has experienced significant disruptions in her sleep pattern, failing to sleep for three consecutive nights, leading to increased behavioral disturbances, including a combative incident. These disturbances prompted a brief reconciliation, where the patient displayed insight into her behavior but has not returned to previous levels of calmness or order. Despite ongoing treatment with Depakote twice daily, improvements in behavioral symptoms have been minimal. The patient's care team is considering the potential for underlying Parkinson's Disease Psychosis (PDP), as her presentation is suggestive of such conditions. Concerns were noted about the impact of medication adjustments on her ability to participate in physical therapy effectively. 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 - General: Reports combative behavior episode. Physical Exam Neuro Other: He is alert and awake with decreased spontaneity and fluency of speech. She is anxious. She somewhat resistant to gestures. With help, she was able to get up and walked in his slow stepped gait, turning en bloc. Assessment & Plan Assessment & Plan (1) Parkinsonism: Code(s): G20.C - Parkinsonism, unspecified Category: Medical Qualifiers: Parkinsonism type: unspecified Qualified Code(s): G20.C - Parkinsonism, unspecified (2) Complex partial seizure disorder: Code(s): G40.209 - Localization-related (focal) (partial) symptomatic epilepsy and epileptic syndromes with complex partial seizures, not intractable, without status epilepticus Category: Medical (3) Dementia with Lewy bodies: Code(s): G31.83 - Neurocognitive disorder with Lewy bodies; F02.80 - Dementia in other diseases classified elsewhere, unspecified severity, without behavioral disturbance, psychotic disturbance, mood disturbance, and anxiety Category: Medical Qualifiers: Dementia severity: moderate Dementia behavioral or psychological symptom: with other behavioral disturbance Qualified Code(s): G31.83 - Neurocognitive disorder with Lewy bodies; F02.B18 - Dementia in other diseases classified elsewhere, moderate, with other behavioral disturbance Plan Impression: a: Dementia with Lewy bodies b: Parkinsonism c: Complex partial seizure disorder d: Benign hallucinations related to dementia Rec: a: 50/200 carbidopa/levodopa one tab 4 times a day b: Continue Divalproex acid 250mg BID c. Memantine 5mg bid During our discussion, we considered that the patient's sleep disorder and behavioral disturbances may relate to Parkinson's Disease Psychosis (PDP). I proposed the addition of memantine at a dose of 5 mg twice a day to address these issues, explaining its benign profile and anticipated benefit within a few days. We discussed that if behavioral symptoms persist, further treatment escalation might be necessary. The potential impact of this medication on the patient's physical therapy was addressed, and it was agreed that the initial dosage should not hinder physical therapy participation. We also ensured that there was adequate Depakote supply and instructed a refill. Follow-up is jose maria rodriguez to monitor the effectiveness and any side effects of the current treatment plan. Medications: New memantine 5 mg PO BID 180 tabs 0RF 90 days Changed From ivjhsnvln-snvsigtb-qwdjwhwbmc 50-200-200 mg 1 tab PO TID 270 tabs 0RF To xxnwgginn-hsdkmuvz-wxioznlbnp 50-200-200 mg 1 tab PO QID 360 tabs 0RF From divalproex 250 mg PO DAILY 90 tabs 0RF To divalproex 250 mg PO BID 180 tabs 0RF Coding Level of Care Code Est Pt Level 4 (93995) Diagnoses Parkinsonism, unspecified Parkinsonism type G20.C Parkinsonism type: unspecified Complex partial seizure disorder G40.209 Moderate Lewy body dementia with other behavioral disturbance G31.83; F02.B18 Dementia severity: moderate Dementia behavioral or psychological symptom: with other behavioral disturbance
--- OUTSIDE RECORDS SUMMARY | 2024-11-21 16:27 | XMS_ITS | Encounter Summary ---
Author Organization [facility] Address [address] [place] [address] Care Team Providers Care Airplane Captain Name Role Phone Jessica Nguyen MD Primary Care Provider [phone] Reason for Visit * Reason Onset Date Comments Lab Results 11/19/2024 Encounter Details Date Type Department Care Team (Late st Contact Info) Description 11/19/2024 Telephone Internal Medicine - [place] [address] [facility] [address] [place] [phone] Jessica Nguyen MD [address] [facility] [address] [place] [phone] Social History Tobacco Use Types Packs/Day Years [...] as of this encounter Progress Notes * Sena Catherine MA - 11/20/2024 1:47 PM EDT Spoke to patient and she's aware, Also she wanted a copy of results and mailed to p.o box on file. Mailed * Edith Irais - 11/19/2024 3:48 PM EDT Patient called and requested a call back about her lab results because she has some questions aboutit. Cb# [phone] documented in this encounter Plan of Treatment Upcoming Encounters Date Type Department Care Team (Late st Contact Info) Description 08/28/2025 4:00 PM EDT Office Visit Internal Medicine - [place] [address] [place] [address] All Parker NP [address] [place] [address] documented as of this encounter Visit Diagnoses Not on filedocumented in this encounter Additional Health Concerns Assessment Noted Time PHQ-9 Depression Total Score: 9 09/18/19 25 3:38 PM EDT documented as of this encounter Care Teams Airplane Captain Relationship Specialty Start Date End Date Jessica Nguyen MD [address] [place] [address] PCP - General Internal Medicine 08/21/24 documented as of this encounter
--- OUTSIDE RECORDS SUMMARY | 2024-11-21 16:27 | XMS_ITS | Clinical Summary ---
Author Organization [facility] Address [address] [place] [address] Care Team Providers Care X Ray Service Engineer Name Role Phone Jessica Nguyen MD Primary Care Provider [phone] Allergies No known active allergies Medications omeprazole [...] complete this topic Insurance Medicaid [place] Medicaid [place] Care Teams X Ray Service Engineer Relationship Specialty Start Date End Date Jessica Nguyen MD 175 [facility] [address] [place] [address] PCP - General Internal Medicine 02/09/21
--- OUTSIDE RECORDS SUMMARY | 2024-11-21 16:27 | XMS_ITS | Encounter Summary ---
Author Organization [facility] Address [address] [place] [address] Care Team Providers Care Imaging Analyst Name Role Phone Jessica Nguyen MD Primary Care Provider [phone] Reason for Visit * Reason Onset Date Comments provider call back 11/19/2024 Encounter Details Date Type Department Care Team (Late st Contact Info) Description 11/19/2024 Telephone Gastroenterology - [place] [address] [place] [phone] Barbra Augustine PA [address] [place] [address] Social History Tobacco Use Types Packs/Day Years [...] as of this encounter Progress Notes * Chen Mckeon [place] - 11/20/2024 8:28 AM EDT Faxed orders over to [employer] * Penny Chang - 11/19/2024 4:11 PM EDT Patient's daughter calling requesting to have Barium Swallow orders sent over to [employer], Phone # [phone]. . Along with daughter, Charles, contact info to schedule appt. documented in this encounter Plan of Treatment Upcoming Encounters Date Type Department Care Team ([facility] st Contact Info) Description 08/28/2025 4:00 PM EDT Office Visit Internal Medicine - [place] [address] [facility] [address] [place] [address] All Parker NP 175 [facility] [address] [place] [address] documented as of this encounter Visit Diagnoses Not on filedocumented in this encounter Additional Health Concerns Assessment Noted Time PHQ-9 Depression Total Score: 9 09/18/19 25 3:38 PM EDT documented as of this encounter Care Teams Imaging Analyst Relationship Specialty Start Date End Date Jessica Nguyen MD 175 [facility] [address] [place] [address] PCP - General Internal Medicine 08/21/24 documented as of this encounter
--- OUTSIDE RECORDS SUMMARY | 2024-11-21 16:27 | XMS_ITS | Encounter Summary ---
Author Organization [facility] Address [address] [place] [address] Care Team Providers Care Data Quality Consultant Name Role Phone Jessica Nguyen MD Primary Care Provider [phone] Reason for Visit * Reason Onset Date Comments Labs Only 11/02/2024 Encounter Details Date Type Department Care Team (Late st Contact Info) Description 11/02/2024 Telephone [facility] [place] [address] [place] [phone] Ayanna Caputo MD [address] [place] [address] Social History Tobacco Use Types Packs/Day Years [...] as of this encounter Progress Notes * Sanjana Holdne - 11/02/2024 11:19 AM EDT Pt is calling to ask Dr Caputo if he wanted her to do blood work, if so can he please order labs. documented in this encounter Plan of Treatment Upcoming Encounters Date Type Department Care Team (Late st Contact Info) Description 08/28/2025 4:00 PM EDT Office Visit Internal Medicine - [place] [address] [facility] [address] [place] [address] All Parker, LUIS ALBERTO 175 [facility] [address] [place] [address] documented as of this encounter Visit Diagnoses Not on filedocumented in this encounter Additional Health Concerns Assessment Noted Time PHQ-9 Depression Total Score: 9 09/18/19 3:38 PM EDT documented as of this encounter Care Teams Data Quality Consultant Relationship Specialty Start Date End Date Jessica Nguyen MD 175 [facility] [address] [place] [address] PCP - General Internal Medicine 08/21/24 documented as of this encounter
--- OUTSIDE RECORDS SUMMARY | 2024-11-21 16:27 | XMS_ITS | Clinical Summary ---
Author Organization [address] [place] [address] Address [address] [place] [address] Phone Care Team Providers Care Auto Design Checker Name Role Phone Jessica Nguyen MD Primary Care Provider [phone] Allergies No known active allergies Medications acetaminophen [...] Assessment & Plan: Her primary care in [place] decreased her atorvastatin to 40 mg 3 days a week because of myalgia side effects on daily dosing, I think this is fine in light of advanced age and comorbidities-continue this regimen Venous insufficiency 08/11/2022 Overview (02/24/2024): -She was having a lot of issues with lower extremity edema. In fact, she was seen in the ER at [facility] on 11/27/2020. At the time, she was [...] work-up and reassuring echo during hospitalization at [facility] in March 2021 -Has been [...] -Echocardiogram most recently during her hospitalization at [facility] from 04/12/2021 showed mild, concentric [...] Encounters Date Type Department Care Team Description 11/19/2024 Telephone Gastroenterology [facility] [address] [phone] Barbra Augustine PA 11/19/2024 Telephone Internal Medicine [facility] [address] [phone] Jessica Nguyen MD 11/02/2024 Telephone Endocrinology [address] [phone] Ayanna Caputo MD 10/31/2024 Telephone Internal Medicine [facility] [address] [phone] Jessica Nguyen MD 10/18/2024 Telephone Pulmonology [facility] [address] [phone] Vinny Lim MD 10/17/2024 Telephone Internal Medicine [facility] 175 [facility] 200 [place] [phone] Jessica Nguyen MD 10/17/2024 Telephone Internal Medicine [address] [phone] Jessica Nguyen MD 09/26/2024 3:45 PM EDT Consult Pulmonology [address] 200 [place] [phone] Vinny Lim MD Snoring (Primary Dx); Chronic fatigue; Primary hypertension 09/25/2024 9:50 AM EDT Lab Draw Station - [address] [phone] Elevated vitamin B12 level (Primary Dx); Postoperative hypothyroidism; Screening for ischemic heart disease; Healthcare maintenance; Screening for diabetes mellitus; Hypothyroidism, unspecified type; Vitamin B12 deficiency; Vitamin D deficiency 09/24/2024 Telephone Gastroenterology [address] [phone] Barbra Augustine PA 09/20/2024 10:20 AM EDT Office Visit [facility] 154 [address] [facility] 154 [place] [address] Eugenie Quintero MD Syncope and collapse (Primary Dx); Hyperlipidemia, unspecified hyperlipidemia type; Primary hypertension 09/19/2024 3:00 PM EDT Consult Gastroenterology [address] [phone] Barbra Augustine PA Oral phase dysphagia (Primary Dx); Parkinsonism, unspecified Parkinsonism type (CMS/HCC V24, CMS/HCC V28); Snoring; Dysphagia, unspecified type 09/17/2024 3:45 PM EDT Office Visit Internal Medicine [address] [phone] lAl Parker NP Primary hypertension (Primary Dx); Hyperlipidemia, unspecified hyperlipidemia type; Hypothyroidism, unspecified type; Parkinsonism, unspecified Parkinsonism type ([facility] V24, [facility] V28); Lewy body dementia, unspecified dementia severity, unspecified whether behavioral, psychotic, or mood disturbance or anxiety ([facility] V24, [facility] V28); Constipation, unspecified constipation type; Seasonal allergies; Generalized weakness; Anxiety; Snoring; Dry mouth; Dysphagia, unspecified type; Screening for ischemic heart disease; Screening for diabetes mellitus; Vitamin B12 deficiency; Vitamin D deficiency; Healthcare maintenance 08/23/2024 Telephone Endocrinology [address] [phone] Ayanna Caputo MD 08/21/2024 4:30 PM EDT Office Visit Endocrinology [address] [phone] Ayanna Caputo MD Postoperative hypothyroidism (Primary Dx) [...] PM EDT Office Visit Internal Medicine - [place] 175 [facility] [address] [place] [phone] All Parker NP 175 [facility] 200 [place] [address] Health Maintenance Due Date Last Done Comments DTaP,Tdap,and Td Vaccines (1 - Tdap) 1964 Pneumococcal Vaccine: 50+ Years (1 of 1 - PCV) 1993 Zoster Vaccines (1 of 2) 1993 RSV Immunization Adult Patients (1 - 1-dose 75+ series) 2018 Falls Risk Assessment 02/07/2022 Medicare Annual Wellness Visit 02/07/2022 Osteoporosis Screening (Bone Density Screening) 02/07/2022 Social Influencers of Health Screening 02/07/2022 COVID-19 Vaccine (1 - 2023-2 5 season) 2024 Influenza Vaccine [...] Name Priority Date/Time Associated Diagnosis Comments VITAMIN B12 Routine 11/05/2024 4:58 PM EDT Vitamin B12 deficiency Elevated vitamin B12 level VITAMIN D 25 HYDROXY Routine 09/25/2024 10:01 [...] hypothyroidism from Last 3 Months Results * (ABNORMAL) Vitamin B12 (11/05/2024 4:58 PM EDT) Only the most recent of2 resultswithin the time period is included. [facility] Vitamin B-12 1,067(H) 250 - 900 pcg/mL LAB CHEMISTRY METHOD 11/05/2024 7:26 PM EDT [facility] Blood Venous blood specimen / Unknown 11/05/2024 4:58 PM EDT 11/05/2024 4:58 PM EDT All Parker INSERT CUTTER LAB BLOOD ORDERABLES Final Resul t Performing Organization Address [facility]/ZIP Co de Phone Number [facility] [address] [place] [address], [place] [phone] * Thyroid stimulating hormone with reflex to free t4 and free t3 (09/25/2024 10:01 AM EDT) TSH 2.19 0.40 - 4.00 mcIU/mL LAB CHEMISTRY METHOD 09/25/2024 2:31 PM EDT [facility] Blood Venous blood specimen / Unknown Venipuncture / Unknown 09/25/2024 10:01 AM EDT 09/25/2024 11:17 AM EDT All Parker INSERT CUTTER LAB BLOOD ORDERABLES Final Resul t Performing Organization Address [facility] Co de Phone Number [facility] [address] [place] [address], [place] [phone] * (ABNORMAL) Lipid panel with reflex to direct LDL (09/25/2024 10:01 AM EDT) Cholesterol 190 0 - 200 mg/dL LAB CHEMISTRY METHOD 09/25/2024 1:04 PM EDT [facility] Triglycerides 53 0 - 150 mg/dL LAB CHEMISTRY METHOD 09/25/2024 1:04 PM EDT [facility] HDL 72 >=40 mg/dL LAB CHEMISTRY METHOD 09/25/2024 1:04 PM EDT [facility] LDL Calculated 107(H) 0 - 100 mg/dL LAB CHEMISTRY METHOD 09/25/2024 1:04 PM EDT [facility] VLDL Cholesterol Hai 10.6 mg/dL LAB CHEMISTRY METHOD 09/25/2024 1:04 PM EDT [facility] Non HDL Chol. (LDL+VLDL) 118 <145 mg/dL LAB CHEMISTRY METHOD 09/25/2024 1:04 PM EDT [facility] Chol/HDL Ratio 2.6 0.0 - 4.4 LAB CHEMISTRY METHOD 09/25/2024 1:04 PM EDT [facility] Blood Venous blood specimen / Unknown Venipuncture / Unknown 09/25/2024 10:01 AM EDT 09/25/2024 11:17 AM EDT All Parker LAB BLOOD ORDERABLES Final Resul t Performing Organization Address [facility] de Phone Number [facility] [address] [place] [address], [place] [phone] * (ABNORMAL) Vitamin D 25 hydroxy (09/25/2024 10:01 AM EDT) Vit D, 25-Hydroxy 26.5(L) 30.0 - 80.0 ng/mL LAB CHEMISTRY METHOD 09/25/2024 2:30 PM EDT [facility] Blood Venous blood specimen / Unknown Venipuncture / Unknown 09/25/2024 10:01 AM EDT 09/25/2024 11:17 AM EDT All Parker NP LAB BLOOD ORDERABLES Final Resul t Performing Organization Address [facility]/ZIP Co de Phone Number [facility] [address] [place] [address], [place] [phone] * (ABNORMAL) Complete blood count (09/25/2024 10:01 AM EDT) WBC 6.8 4.8 - 10.8 K/mcL LAB HEMETOLOGY METHOD 09/25/2024 11:27 AM EDT [facility] RBC 3.90 3.80 - 4.80 M/mcL LAB HEMETOLOGY METHOD 09/25/2024 11:27 AM [facility] Hemoglobin 12.6 11.5 - 16.0 g/dL LAB HEMETOLOGY METHOD 09/25/2024 11:27 AM [facility] Hematocrit 39.5 35.0 - 47.0 % LAB HEMETOLOGY METHOD 09/25/2024 11:27 AM [facility] MCV 101.3(H) 79.0 - 98.0 FL LAB HEMETOLOGY METHOD 09/25/2024 11:27 AM [facility] MCH 32.3(H) 27.0 - 32.0 pcg LAB HEMETOLOGY METHOD 09/25/2024 11:27 AM [facility] MCHC 31.9(L) 32.0 - 37.0 g/dL LAB HEMETOLOGY METHOD 09/25/2024 11:27 AM [facility] RDW 13.5 11.0 - 15.0 % LAB HEMETOLOGY METHOD 09/25/2024 11:27 AM [facility] Platelets 241 130 - 400 K/mcL LAB HEMETOLOGY METHOD 09/25/2024 11:27 AM [facility] MPV 10.6 7.0 - 11.0 FL LAB HEMETOLOGY METHOD 09/25/2024 11:27 AM [facility] NRBC 0.0 <1.0 % LAB HEMETOLOGY METHOD 09/25/2024 11:27 AM [facility] NRBC Absolute 0.00 <0.10 K/mcL LAB HEMETOLOGY METHOD 09/25/2024 11:27 AM [facility] Blood Venous blood specimen / Unknown Venipuncture / Unknown 09/25/2024 10:01 AM EDT 09/25/2024 11:18 AM EDT us All Parker NP LAB BLOOD ORDERABLES Final Resul t Performing Organization Address [facility]/ZIP Co de Phone Number [facility] [address] [place] [address], [place] [phone] * Thyroxine free (09/25/2024 10:01 AM EDT) Only the most recent of2 resultswithin the time period is included. [facility] Free T4 1.33 0.70 - 1.80 ng/dL LAB CHEMISTRY METHOD 09/25/2024 2:31 PM EDT [facility] Blood Venous blood specimen / Unknown Venipuncture / Unknown 09/25/2024 10:01 AM EDT 09/25/2024 11:17 AM EDT Ayanna Caputo MD LAB BLOOD ORDERABLES Final Resul t Performing Organization Address [facility] Co de Phone Number [facility] [address] [place] [address], [place] [phone] * Magnesium (09/25/2024 10:01 AM EDT) [facility] Magnesium 2.6 1.9 - 2.6 mg/dL LAB CHEMISTRY METHOD 09/25/2024 12:34 PM EDT [facility] Blood Venous blood specimen / Unknown Venipuncture / Unknown 09/25/2024 10:01 AM EDT 09/25/2024 11:17 AM EDT All Parker NP LAB BLOOD ORDERABLES Final Resul t Performing Organization Address [facility] Co de Phone Number [facility] [address] [place] [address], [place] [phone] * Hemoglobin A1c (09/25/2024 10:01 AM EDT) Hemoglobin A1C 5.4 <6.5 % LAB CHEMISTRY METHOD 09/25/2024 1:05 PM [facility] Mean Bld Glu Estim. 108 mg/dL LAB CHEMISTRY METHOD 09/25/2024 1:05 PM [facility] Blood Venous blood specimen / Unknown Venipuncture / Unknown 09/25/2024 10:01 AM EDT 09/25/2024 11:18 AM EDT us All Parker NP LAB BLOOD ORDERABLES Final Resul t [facility] [address] [place] [address], [place] [phone] * (ABNORMAL) Comprehensive metabolic panel (09/25/2024 10:01 AM EDT) Sodium 141 133 - 145 mmol/L LAB CHEMISTRY METHOD 09/25/2024 1:04 PM [facility] Potassium 3.8 3.5 - 5.5 mmol/L LAB CHEMISTRY METHOD 09/25/2024 1:04 PM [facility] Chloride 107 96 - 110 mmol/L LAB CHEMISTRY METHOD 09/25/2024 1:04 PM [facility] CO2 28 21 - 32 mmol/L LAB CHEMISTRY METHOD 09/25/2024 1:04 PM [facility] Anion Gap 6 3 - 11 LAB CHEMISTRY METHOD 09/25/2024 1:04 PM [facility] Glucose 84 70 - 100 mg/dL LAB CHEMISTRY METHOD 09/25/2024 1:04 PM [facility] BUN 12 5 - 25 mg/dL LAB CHEMISTRY METHOD 09/25/2024 1:04 PM [facility] Creatinine 0.79 0.50 - 1.10 mg/dL LAB CHEMISTRY METHOD 09/25/2024 1:04 PM [facility] eGFR 75 >=60 mL/min/1. 73m2 LAB CHEMISTRY METHOD 09/25/2024 1:04 PM T [facility] Comment:Calculation based on the Chronic Kidney Disease Epidemiology Collaboration (CKD-EPI) equation refit without adjustment for race. BUN/Creatinine Ratio 15.2 LAB CHEMISTRY METHOD 09/25/2024 1:04 PM [facility] Calcium 9.3 8.5 - 10.5 mg/dL LAB CHEMISTRY METHOD 09/25/2024 1:04 PM [facility] AST (SGOT) 14 10 - 42 unit/L LAB CHEMISTRY METHOD 09/25/2024 1:04 PM [facility] ALT (SGPT) 9(L) 10 - 60 unit/L LAB CHEMISTRY METHOD 09/25/2024 1:04 PM [facility] Alkaline Phosphatase 67 42 - 121 unit/L LAB CHEMISTRY METHOD 09/25/2024 1:04 PM [facility] Total Protein 6.9 6.0 - 8.0 g/dL LAB CHEMISTRY METHOD 09/25/2024 1:04 PM [facility] Albumin 3.6 3.2 - 5.0 g/dL LAB CHEMISTRY METHOD 09/25/2024 1:04 PM [facility] Total Bilirubin 0.6 0.0 - 1.4 mg/dL LAB CHEMISTRY METHOD 09/25/2024 1:04 PM [facility] Blood Venous blood specimen / Unknown Venipuncture / Unknown 09/25/2024 10:01 AM EDT 09/25/2024 11:17 AM EDT us All Parker NP LAB BLOOD ORDERABLES Final Resul t [facility] [address] [place] [address], * ECG 12 lead (09/20/2024 10:40 AM EDT) Ventricular Rate ECG 52 BPM GEMUSE Atrial Rate 52 BPM GEMUSE P-R Interval 242 ms GEMUSE QRS Duration 124 ms GEMUSE Q-T Interval 460 ms GEMUSE QTc 427 ms GEMUSE P Wave [place] 66 degrees GEMUSE R [place] 0 degrees GEMUSE T [place] -78 degrees GEMUSE ECG Interpretation Sinus bradycardia with 1st degree A-V block Left ventricular hypertrophy with QRS widening Cannot rule out Septal infarct (cited on or before 27-NOV-2020) ST and T wave abnormality, consider lateral ischemia Abnormal ECG When compared with ECG of 10-APR-2021 21:37, [place] interval has increased Vent. rate has decreased BY 31 BPM Nonspecific T wave abnormality now evident in Inferior leads T wave inversion more evident in Anterolateral leads Confirmed by EUGENIE QUINTERO ([id number]) on 09/27/2024 1:07:29 PM GEMUSE 09/20/2024 10:4 0 AM EDT 09/27/2024 1:07 PM EDT Eugenie Quintero MD ECG ORDERABLES Final Result GEMUSE * (ABNORMAL) Thyroid stimulating hormone (08/21/2024 4:56 PM EDT) Pathologist [facility] TSH 0.37(L) 0.40 - 4.00 mcIU/mL LAB CHEMISTRY METHOD 08/21/2024 7:13 PM EDT [facility] Blood Venous blood specimen / Unknown Venipuncture / Unknown 08/21/2024 4:56 PM EDT 08/21/2024 4:56 PM EDT Ayanna Caputo MD LAB BLOOD ORDERABLES Final Resul t [facility] [address] [place] [address], [place] [phone] from Last 3 Months Insurance MEDICARE MEDICAID [place] Care Teams Auto Design Checker Relationship Specialty Start Date End Date Jessica Nguyen MD [address] [place] [address] [address] [place] [phone] PCP - General Internal Medicine 08/21/24
--- OUTSIDE RECORDS SUMMARY | 2024-11-21 16:27 | XMS_ITS | Encounter Summary ---
Author Organization [facility] Address [address] [place] [address] Care Team Providers Care Civil Estimator Name Role Phone Jessica Nguyen MD Primary Care Provider [phone] Encounter Details Date Type Department Care Team (Late st Contact Info) Description 10/17/2024 Telephone Internal Medicine - [place] [address] [place] [phone] Jessica Nguyen MD [address] [place] [phone] Social History Tobacco Use Types Packs/Day Years [...] Progress Notes * Sena Catherine MA - 11/02/2024 10:22 AM EDT Spoke to patient and she's aware. * All Praker NP - 11/01/2024 1:38 PM EDT Recommend rechecking vitamin B12 level, lab reordered. * Ashanti Cantu MA - 10/17/2024 4:14 PM EDT PT was seen by All. Please advice roro Soto [phone] Requesting cb regarding high vitamin b12 levels from recent labwork. What are the next steps? * Bhavya Rand - 10/17/2024 3:52 PM EDT roro Soto [phone] Requesting cb regarding high vitamin b12 levels from recent labwork. What are the next steps? Please advise, ty documented in this encounter Plan of Treatment Upcoming Encounters Date Type Department Care Team (Late st Contact Info) Description 08/28/2025 4:00 PM EDT Office Visit Internal Medicine - [place] [address] [facility] [address] [place] [address] All Parker NP [address] [facility] [address] [place] [address] documented as of this encounter Visit Diagnoses Not on filedocumented in this encounter Additional Health Concerns Assessment Noted Time PHQ-9 Depression Total Score: 9 09/18/19 3:38 PM EDT documented as of this encounter Care Teams Civil Estimator Relationship Specialty Start Date End Date Jessica Nguyen MD [address] [facility] [address] [place] [address] PCP - General Internal Medicine 08/21/24 documented as of this encounter
--- OUTSIDE RECORDS SUMMARY | 2024-11-21 16:28 | XMS_ITS | Clinical Summary ---
Author Organization [facility] Address [address] [facility] [address] [place] [address] Care Team Providers Care Director Of Spa And Guest Experience Name Role Phone Jessica Nguyen MD Primary Care Provider [phone] Social History Tobacco Use Types Packs/Day Years Used Date Smoking Tobacco: Never Assessed Comments Unknown Sex and Gender Information Value Date Recorded Sex Assigned at Not on file Legal Sex Female 9:20 AM EDT Gender Identity Not on file Sexual Orientation Not on file Plan of Treatment Upcoming Encounters Date Type Department Care Team (Late st Contact Info) Description 04/18/2025 2:00 PM EST Office Visit [facility] [address] [facility] [place] [address] Susan Saavedra MD [address] [place] [address] Health Maintenance Due Date Last Done Comments Bone Density Scan 1945 Welcome to Medicare Visit (IPPE) 1945 DTaP/Tdap/Td Vaccines (1 - Tdap) 1962 Pneumococcal Vaccine: 50+ Ye ars (1 of 1 - PCV) 1993 Zoster Vaccines (1 of 2) 1993 Depression Screening 02/29/2024 COVID-19 Vaccine ( - 2023-2 5 season) 2024 Influenza Vaccine (#1) 2024 HIB Vaccines Aged Out No longer eligi [...] patient's age to complete this topic Meningococcal Vaccine Aged Out No yvon adam eligible based on patient's age to complete this topic Rotavirus Vaccines Aged Out No longer eligible based on patient's age to complete this topic Insurance MEDICARE PART A AND B MEDICAID STANDARD Care Teams Director Of Spa And Guest Experience Relationship Specialty Start Date End Date Jessica Nguyen MD [address] [address] PCP - General Radio Machinist 11/13/24
== END ==
LOC: HO.HSM 13:57
PROVIDERS: PCP Internal Medicine; Visit Provider Psychiatry & Neurology Neurology
DX: G20.C Parkinsonism, unspecified (principal); G40.209 Localization-related (focal) (partial) symptomatic epilepsy and epileptic syndromes with complex partial seizures, not intractable, without status epilepticus; G31.83 Neurocognitive disorder with Lewy bodies; F02.B18 Dementia in other diseases classified elsewhere, moderate, with other behavioral disturbance
CPT/HCPCS: 99214

== ENCOUNTER 2025-01-08 15:44 | Outpatient (AMB) | payer MEDICARE, MEDICAID, SELFPAY ==
--- NOTE | 2025-01-08 15:59 | A.OFFVIS_ITS ---
Intake Visit Reasons: 2M PD Allergies No Known Allergies Allergy (Verified 05/17/24 15:32) HPI Comments Details: 79 years old woman with [id number] dementia impacting her cognition and physical abilities. She also has mild to moderate parkinsonism and behavioral symptomatology including visual hallucinations. She was seeing young children. Frequently she would not recognize family members. She was asking to go home while she was home. She is presenting with sleep disorder and related behavioral disturbances. Recently, the patient has experienced significant disruptions in her sleep pattern, failing to sleep for three consecutive nights, leading to increased behavioral disturbances, including a combative incident. These disturbances prompted a brief reconciliation, where the patient displayed insight into her behavior but has not returned to previous levels of calmness or order. Despite ongoing treatment with Depakote twice daily, improvements in behavioral symptoms have been minimal. The patient's care team is considering the potential for underlying Parkinson's Disease Psychosis (PDP), as her presentation is suggestive of such conditions. Concerns were noted about the impact of medication adjustments on her ability to participate in physical therapy effectively. 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 - Neurological: Reports significant sleep disruptions and behavioral disturbances. - General: Reports combative behavior episode. Const Reports as per [facility] Physical Exam Neuro Other: Mental Status: She is alert and awake smiling answering simple questions but mostly keeping quite. Cranial Nerves: CN II: Visual rodriges full to confrontation, visual acuity intact. CN III, IV, : Pupils equal, round, reactive to light and accommodation. Extraocular movements are normal. CN V: Facial sensation is normal. CN VII: Facial movements symmetrical. CN VIII: Hearing intact to bedside conversation is normal. CN IX, X: Palate elevates symmetrically. CN XI: Shoulder shrug and head turn symmetrical. CN XII: Tongue midline without atrophy or fasciculations. She was in a wheelchair. Extrapyramidal: Facial expression blinking were slightly diminished. There were mild dyskinetic movements of her arms. Speech: Normal; no dysarthria or tremor. Assessment & Plan Assessment & Plan (1) Parkinsonism: Code(s): G20.C - Parkinsonism, unspecified Category: Medical Qualifiers: Parkinsonism type: unspecified Qualified Code(s): G20.C - Parkinsonism, unspecified (2) Complex partial seizure disorder: Code(s): G40.209 - Localization-related (focal) (partial) symptomatic epilepsy and epileptic syndromes with complex partial seizures, not intractable, without status epilepticus Category: Medical Qualifiers: Epilepsy type: partial symptomatic Intractability: not intractable Status epilepticus: without status epilepticus Qualified Code(s): G40.209 - Localization-related (focal) (partial) symptomatic epilepsy and epileptic syndromes with complex partial seizures, not intractable, without status epilepticus (3) Dementia with Lewy bodies: Code(s): G31.83 - Neurocognitive disorder with Lewy bodies; F02.80 - Dementia in other diseases classified elsewhere, unspecified severity, without behavioral disturbance, psychotic disturbance, mood disturbance, and anxiety Category: Medical Qualifiers: Dementia severity: moderate Dementia behavioral or psychological symptom: with other behavioral disturbance Qualified Code(s): G31.83 - Neurocognitive disorder with Lewy bodies; F02.B18 - Dementia in other diseases classified elsewhere, moderate, with other behavioral disturbance Plan Impression: a: Dementia with Lewy bodies b: Parkinsonism c: Complex partial seizure disorder d: Benign hallucinations related to dementia e: Sleep disorder Rec: a: 50/200 carbidopa/levodopa one tab 4 times a day b: Continue Divalproex acid 250mg BID c. Memantine 5mg bid d. Zolpidem 5mg one at bedtime as needed Medications: New zolpidem 5 mg orally at bedtime as needed; 14 tabs 0RF Refilled qoksrdsxp-nvugiudo-rjqamdpvbe 50-200-200 mg 1 tab PO QID 360 tabs 0RF Coding Level of Care Code Est Pt Level 4 (21312) Diagnoses Parkinsonism, unspecified Parkinsonism type G20.C Parkinsonism type: unspecified Partial symptomatic epilepsy with complex partial seizures, not intractable, without status epilepticus G40.209 Epilepsy type: partial symptomatic Intractability: not intractable Status epilepticus: without status epilepticus Moderate Lewy body dementia with other behavioral disturbance G31.83; F02.B18 Dementia severity: moderate Dementia behavioral or psychological symptom: with other behavioral disturbance Time Spent (min) 30
--- OUTSIDE RECORDS SUMMARY | 2025-01-08 17:13 | XMS_ITS | Clinical Summary ---
Author Organization [employer] Address [address] [facility] Joann Estrella [facility] [address] [place] [address] Care Team Providers Care Electronics Engineer Name Role Phone Jessica Nguyen MD Primary Care Provider [phone] Social History Tobacco Use Types Packs/Day Years [...] Description 04/18/2025 2:00 PM EST Office Visit [facility] [address] [facility], 11th [place] [address] Susan Saavedra MD [address] [place] [address] Health Maintenance Due Date Last Done Comments Bone Density Scan 1945 DTaP/Tdap/Td Vaccines (1 - Tdap) 1962 Pneumococcal Vaccine: 50+ Ye ars (1 of 1 - PCV) 1993 Zoster Vaccines (1 of 2) 1993 Depression Screening 02/29/2024 COVID-19 Vaccine ( - 2024-2 6 season) 2024 Influenza Vaccine (#1) 2024 Medicare Annual Wellness (AWV) 12/29/2024 HIB Vaccines Aged Out No longer eligi [...] A AND B MEDICAID STANDARD Care Teams Electronics Engineer Relationship Specialty Start Date End Date Jessica Nguyen MD [address] [address] PCP - General Facility Coordinator 11/13/24
--- OUTSIDE RECORDS SUMMARY | 2025-01-08 17:13 | XMS_ITS | Encounter Summary ---
Author Organization [facility] Address [address] [place] [address] Care Team Providers Care Airline Dispatcher Name Role Phone Jessica Nguyen MD Primary Care Provider [phone] Encounter Details Date Type Department Care Team (Late Contact Info) Description 12/04/2024 Results Follow-Up Endocrinology - [address] [phone] Ayanna Caputo MD [address] [place] [address] Social History Tobacco Use Types Packs/Day Years [...] on file documented as of this encounter Plan of Treatment Upcoming Encounters Date Type Department Care Team (Late Contact Info) Description 08/28/2025 4:00 PM EDT Office Visit Internal Medicine - [place] [address] [facility] [address] [place] [phone] All Parker NP 175 [facility] [address] [place] [address] documented as of this encounter Visit Diagnoses Not on filedocumented in this encounter Additional Health Concerns Assessment Noted Time PHQ-9 Depression Total Score: 9 09/18/19 25 3:38 PM EDT documented as of this encounter Care Teams Airline Dispatcher Relationship Specialty Start Date End Date Jessica Nguyen MD [address] [address] PCP - General Internal Medicine 08/21/24 documented as of this encounter
--- OUTSIDE RECORDS SUMMARY | 2025-01-08 17:13 | XMS_ITS | Data Portability ---
Author Organization [place] [facility] Address [address] [place] [address] [address] [place] [address] Assessment Encounter Date Assessment Date Assessment LastModified by Organization Details LastModified Time 09/02/2023 09/02/2023 Patient continues to have intermittent left-sided ear pain. Recent MRI limited by motion artifact, but there is suggestion of an 11 mm T1 hypointense and enhancing focus within the posterior-infer ior left earlobe. Exam shows small skin tag left posterior auricle, firm swelling along posterior margin of the conchal cartilage, non tender. MRI overall reassuring. Exam does not appear much changed. We discussed surgical intervention, but there is no guarantee it will help with the pain. We elected to proceed with observation in a year or sooner with any change. [email or web address] Not available 09/03/2023 16:34:21 Plan of Treatment Reminders Order Date Submit Date Provider Last Modified By Organization Details Last Modified Time Details Appointments None record ed. Lab None record ed. Referral None record ed. Procedures None record ed. Surgeries None record ed. Imaging None record ed. Medication Orders None record ed. Patient TargetsNo targets recorded. Patient InstructionsNo instructions recorded. Reason for Referral None Reported. Results Created Date Observation Date Name Description Value Unit Range Abnormal Flag Note LastModifiedBy Organization Detail LastModifiedTime 08/25/19 24 08/20/2023 MRI, head + neck + orbit s, w/wo contr ast [facility] Access ion Number : [id number] Donna pozo Name: Radha Enriquez Medica l Record Number : [id number] Date of : 1945 Date of Exam: 2023 Referr ing Physic hanna: [facility] [place] [address], [address] [place] [address] Exam: MR Orbits , Face, Neck (C-/C+ ) CPT 74520 Room Descri ption: [facility] Verio 3.0T HISTOR Y: Soft tissue lesion 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 TECHNI QUE: Multip lanar multis equenc e MRI of the neck was obtain ed before and after the admini strati on of 9 cc of Dotare m. COMPAR CHIDI: No prior studie s are availa ble for compar chidi at [facility] . FINDIN GS: Multip le images are degrad ed by donna pozo motion which dimini shes detail , and interp retati on was made in light of this techni salvador confin e. It is diffic ult to evalua te the periau ricula r soft tissue s due to motion . On the stanley l precon trast T1-shirley ghted images , there is sugges tion of a focal T1 hypoin tense lesion involv ing the poultry barn manager ior-in ferior left ear lobe measur ing approx imatel y 11 mm (serie s 3, image 16). This enhanc es, but no defini te correl ate is noted on the T2-shirley ghted images . Mild promin ence of the ventri cles and subara chnoid spaces . The cervic omedul samira juncti on is unrema rkable . No cervic al lympha denopa thy is noted. IMPRES MEGHNA: Motion degrad ed MRI examin ation of the neck. There is sugges tion of an 11 mm T1 hypoin tense and enhanc ing focus within the poultry barn manager ior-in ferior left earlob e which could correl ate with the donna pozo's report ed soft tissue lesion . This can be correl ated with physic al examin ation which will dictat e the need for additi onal evalua tion, such as ultras ound or CT. Electr onical ly Signed By: [facility] [address], [place], [address], 09/03/2023 16:29:35 10/19/19 24 08/16/2022 imagi ng/di agnos tic resul t No observ ation record ed. [email or web address] Not Available 23:19:20 10/19/19 24 09/14/2022 imagi ng/di agnos tic resul t No observ ation record ed. [email or web address] Not Available 23:19:37 10/19/19 24 11/06/2021 imagi ng/di agnos tic resul t No observ ation record ed. [email or web address] Not Available 23:19:41 10/19/19 24 12/02/2020 imagi ng/di agnos tic resul t No observ ation record ed. [email or web address] Not Available 23:20:02 10/19/19 24 08/16/2022 audio gram No observ ation record ed. [email or web address] Not Available 23:20:30 10/19/19 24 11/06/2021 audio gram No observ ation record ed. [email or web address] Not Available 23:21:01 Result Notes None recorded. Problems Name Problem SNOMED Code Status Onset Date Resolution Date Notes Provider Name and Address Organization Details Recorded Time Simple goiter 373913299 Active 2020 Goiter NOS; Note: Date Diagnosed : 12/02/2020 10:49 AM (E04.9) Not Available [facility] 4 02:22:24 Otalgia of left ear 9026333611 Active 2021 Otalgia, left ear; Note: Date Diagnosed : 10/13/2021 6:23 PM (H92.02) Not Available [facility] 4 02:22:30 Sensorine ural hearing loss of bilateral ears 722889757 Active 2021 Sensorine ural hearing loss, bilateral ; Note: Date Diagnosed : 11/06/2021 3:10 PM (H90.3) Not Available [facility] 4 02:22:26 Dizziness and giddiness 173241997 Active 2021 Dizziness and giddiness ; Note: Date Diagnosed : 11/06/2021 2:48 PM (R42) Not Available [facility] 02:22:37 Problem Notes None recorded. Medical Equipment None Reported. Allergies No known drug allergies Medications Name Sig Start Date Stop Date Status Note LastModified by Organization Details LastModified Time carbidopa 25 mg-levodo pa 250 mg tablet TAKE 2 TABLETS BY MOUTH 3 TIMES A DAY active Not Available Not Available No t Available omeprazol e 20 mg capsule,d elayed release 09/01 completed Medicati on ID: [id number] B rand Name: omeprazo le Send Method: E-Prescr ibed Sub s Allowed: subs OK Medic ationGen ericName : omeprazo le Medic ation ID: [id number] B rand Name: omeprazo le Send Method: E-Prescr ibed Sub s Allowed: subs OK Medic ationGen ericName : omeprazo le Not Available Not Available Not Available Senexon-S 8.6 mg-50 mg tablet TAKE 1 TABLET BY MOUTH EVERY DAY 09/01 completed Not Available Not Available Not Available Tirosint 75 mcg capsule TAKE 1 CAPSULE BY MOUTH DAILY active Not Available Not Available No t Available Tirosint 88 mcg capsule TAKE 1 CAPSULE BY MOUTH EVERY DAY 09/01 completed Not Available Not Available Not Available Vitals None Recorded Social History None recorded. Functional Status None recorded. Mental Status None recorded. Family History Nothing Reported. Medical History Condition Response Thyroid Problems Y Gynecological HistoryNo gynecological history recorded. Obstetrics History GPAL:G 0 P 0 0 0 0 Past Encounters Encounter ID Performer Location Encounter Start Date Encounter Closed Date Diagnosis/Indication Diagnosis SNOMED-CT Code Diagnosis ICD10 Code Diagnosis IMO Codes Diagnosis Note [id number] KVNG CHA MD [facility] [address] [place] [place] [address] 09/02/2023 15:12:32 09/02/2023 17:10:00 Otalgia of left ear [id number] H92.02 Health Concerns Section Related Observation LastModified by Organization Detai ls LastModified Time None Recorded Concern Status LastModified by Organization Details LastModified Time None Recorded Advance Directives Directive None Recorded Payers Insurance Date Sequence Insurance Name Policy Number Policy Richardson Covered Member ID Richardson Member ID Guarantor Name 09/02/2023 1 [place]: [facility] Aishwaryaclaire Enriquez [id number] Aishwarya Enriquez Notes Date Note Type Note Provider Name and Address Organization Details Recorded Time 09/02/2023 text/html Patient continues to have intermittent left-sided ear pain. Recent MRI limited by motion artifact, but there is suggestion of an 11 mm T1 hypointense and enhancing focus within the posterior-inferior left earlobe. PV: 77-year-old female presents today for follow-up after CT neck. She was last seen in July for updated audiogram and lightheadedness. She had a CT scan of her neck for persistent unilateral ear pain. She reports that pain is rare.CT scan was notable for 1.8 cm heterogeneously enhancing soft tissue lesion along the cutaneous margin posterior to the left ear. The appearance favors a slow flow vascular malformation such as venous malformation but cannot exclude an indolent cutaneous neoplasm. The skin appears normal in this area except for a skin tag which has been long standing. It is soft.Overall decreased frequency of pain is reassuring, however, I do think it will be worth pursuing MRI with contrast to better characterize the lesion. I will order this for next summer prior to their follow-up for repeat audiogram, and this will also allow to evaluate for any change in size. I did recommend calling to reschedule imaging sooner should the pain become more frequent or there are any visible changes to the skin posterior to the auricle. KVNG CHA MD [address] [place] [address], [phone], [place] [facility] 09/03/2023 16:34:38 OBGyn Episode No OBEpisode recorded.
--- OUTSIDE RECORDS SUMMARY | 2025-01-08 17:13 | XMS_ITS | Clinical Summary ---
Author Organization [address] [place] [address] Address [address] [place] [address] Phone Care Team Providers Care Meter Reading Clerk Name Role Phone Jessica Nguyen MD Primary Care Provider [phone] Allergies No known active allergies Medications acetaminophen [...] Assessment & Plan: Her primary care in [place] decreased her atorvastatin to 40 mg 3 days a week because of myalgia side effects on daily dosing, I think this is fine in light of advanced age and comorbidities-continue this regimen Venous insufficiency 08/11/2022 Overview (02/24/2024): -She was having a lot of issues with lower extremity edema. In fact, she was seen in the ER at [facility] on 11/27/2020. At the time, she [...] work-up and reassuring echo during hospitalization at [facility] in March 2021 -Has been gradually developing [...] -Echocardiogram most recently during her hospitalization at [facility] from 04/12/2021 showed mild, concentric left ventricular [...] Encounters Date Type Department Care Team Description 12/05/2024 Results Follow-Up Endocrinology - [address] [phone] Ayanna Caputo MD 12/04/2024 Results Follow-Up Endocrinology - [address] [phone] Ayanna Caputo MD 11/19/2024 Telephone Gastroenterology - [place] [facility] [address] [address] Barbra Augustine PA 11/19/2024 Telephone Internal Medicine - [place] [address] [address] Jessica Nguyen MD 11/02/2024 Telephone Endocrinology [address] [phone] Ayanna Caputo MD 10/31/2024 Telephone Internal Medicine - [place] [address] [address] Jessica Nguyen MD 10/18/2024 Telephone Pulmonology [facility] [address] [address] Vinny Lim MD 10/17/2024 Telephone Internal Medicine [facility] [address] [phone] Jessica Nguyen MD 10/17/2024 Telephone Internal Medicine [address] [phone] Jessica Nguyen MD from Last 3 Months Family History Medical [...] 4:00 PM EDT Office Visit Internal Medicine [address] [phone] All Parker, LUIS ALBERTO 175 [facility] [address] [place] [address] Health Maintenance Due Date Last Done Comments [...] Health Screening 02/07/2022 COVID-19 Vaccine (1 - 2024-2 6 season) 2024 Influenza Vaccine (#1) 2024 Hypertension/CHF/CAD [...] Procedure Name Priority Date/Time Associated Diagnosis Comments THYROID STIMULATING HORMONE Routine 12/04/2024 3:02 PM EDT Postoperative hypothyroidism THYROXINE FREE Routine 12/04/2024 3:02 PM EDT Postoperative hypothyroidism VITAMIN B12 Routine 11/05/2024 4:58 PM EDT Vitamin B12 deficiency Elevated vitamin B12 level COMPREHENSIVE METABOLIC PANEL Routine 09/25/2024 10:01 AM EDT Healthcare maintenance LIPID PANEL WITH REFLEX TO DIRECT LDL Routine 09/25/2024 10:01 AM EDT Screening for ischemic heart disease from Last 3 Months or Most Recently Relevant to Health Maintenance Results * Thyroid stimulating hormone (12/04/2024 3:02 PM EDT) TSH 1.62 0.40 - 4.00 mcIU/mL LAB CHEMISTRY METHOD 12/04/2024 6:59 PM EDT [facility] Blood Venous blood specimen / Unknown Venipuncture / Unknown 12/04/2024 3:02 PM EDT 12/04/2024 3:02 PM EDT us Ayanna Caputo MD LAB BLOOD ORDERABLES Final Resul t Performing Organization Address [facility] Co de Phone Number [facility] [address] [place] [address], * Thyroxine free (12/04/2024 3:02 PM EDT) Free T4 1.52 0.70 - 1.80 ng/dL LAB CHEMISTRY METHOD 12/04/2024 6:58 PM EDT [facility] Blood Venous blood specimen / Unknown Venipuncture / Unknown 12/04/2024 3:02 PM EDT 12/04/2024 3:02 PM EDT us Ayanna Caputo MD LAB BLOOD ORDERABLES Final Resul t [facility] [address] [place] [address], [place] [phone] * (ABNORMAL) Vitamin B12 (11/05/2024 4:58 PM EDT) [facility] Vitamin B-12 1,067(H) 250 - 900 pcg/mL LAB CHEMISTRY METHOD 11/05/2024 7:26 PM EDT [facility] Blood Venous blood specimen / Unknown 11/05/2024 4:58 PM EDT 11/05/2024 4:58 PM EDT us All Parker BOILER COVERER HELPER LAB BLOOD ORDERABLES Final Resul t [facility] [address] [place] [address], [place] [phone] * (ABNORMAL) Lipid panel with reflex to direct LDL (09/25/2024 10:01 AM EDT) [facility] Cholesterol 190 0 - 200 mg/dL LAB CHEMISTRY METHOD 09/25/2024 1:04 PM EDT [facility] Triglycerides 53 0 - 150 mg/dL LAB CHEMISTRY METHOD 09/25/2024 1:04 PM [facility] HDL 72 >=40 mg/dL LAB CHEMISTRY METHOD 09/25/2024 1:04 PM [facility] LDL Calculated 107(H) 0 - 100 mg/dL LAB CHEMISTRY METHOD 09/25/2024 1:04 PM T [facility] VLDL Cholesterol Hai 10.6 mg/dL LAB CHEMISTRY METHOD 09/25/2024 1:04 PM EDT [facility] Non HDL Chol. (LDL+VLDL) 118 <145 mg/dL LAB CHEMISTRY METHOD [facility]24 [facility] Chol/HDL Ratio 2.6 0.0 - 4.4 LAB CHEMISTRY METHOD 09/25/2024 1:04 PM EDT [facility] Blood Venous blood specimen / Unknown Venipuncture / Unknown 09/25/2024 10:01 AM EDT 09/25/2024 11:17 AM EDT us All Parker LUIS ALBERTO LAB BLOOD ORDERABLES Final Resul t [facility] [address] [place] [address], * (ABNORMAL) Comprehensive metabolic panel (09/25/2024 10:01 AM EDT) Sodium 141 133 - 145 mmol/L LAB CHEMISTRY METHOD 09/25/2024 1:04 PM [facility] Potassium 3.8 3.5 - 5.5 mmol/L LAB CHEMISTRY METHOD 09/25/2024 1:04 PM [facility] Chloride 107 96 - 110 mmol/L LAB CHEMISTRY METHOD 09/25/2024 1:04 PM [facility] CO2 28 21 - 32 mmol/L LAB CHEMISTRY METHOD 09/25/2024 1:04 PM [facility] Anion Gap 6 3 - 11 LAB CHEMISTRY METHOD 09/25/2024 1:04 PM [facility] Glucose 84 70 - 100 mg/dL LAB CHEMISTRY METHOD 09/25/2024 1:04 PM [facility] BUN 12 5 - 25 mg/dL LAB CHEMISTRY METHOD 09/25/2024 1:04 PM [facility] Creatinine 0.79 0.50 - 1.10 mg/dL LAB CHEMISTRY METHOD 09/25/2024 1:04 PM [facility] eGFR 75 >=60 mL/min/1. 73m2 LAB CHEMISTRY METHOD 09/25/2024 1:04 PM [facility] Comment:Calculation based on the Chronic Kidney Disease Epidemiology Collaboration (CKD-EPI) equation refit without adjustment for race. BUN/Creatinine Ratio 15.2 LAB CHEMISTRY METHOD 09/25/2024 1:04 PM EDT [facility] Calcium 9.3 8.5 - 10.5 mg/dL LAB CHEMISTRY METHOD 09/25/2024 1:04 PM EDT [facility] AST (SGOT) 14 10 - 42 unit/L LAB CHEMISTRY METHOD 09/25/2024 1:04 PM T [facility] ALT (SGPT) 9(L) 10 - 60 unit/L LAB CHEMISTRY METHOD 09/25/2024 1:04 PM EDT [facility] Alkaline Phosphatase 67 42 - 121 unit/L LAB CHEMISTRY METHOD 09/25/2024 1:04 PM [facility] Total Protein 6.9 6.0 - 8.0 g/dL LAB CHEMISTRY METHOD 09/25[facility]2024 [facility] PM [facility] Albumin 3.6 3.2 - 5.0 g/dL LAB CHEMISTRY METHOD 09/25/2024 1:04 PM [facility] Total Bilirubin 0.6 0.0 - 1.4 mg/dL LAB CHEMISTRY METHOD 09/25/2024 1:04 PM [facility] Blood Venous blood specimen / Unknown Venipuncture / Unknown 09/25/2024 10:01 AM EDT 09/25/2024 11:17 AM EDT us All Parker BOILER COVERER HELPER LAB BLOOD ORDERABLES Final Resul t [facility] [address] [place] [address], from Last 3 Months or Most Recently Relevant to Health Maintenance Insurance MEDICARE MEDICAID [place] MED[place] - [place] Care Teams Meter Reading Clerk Relationship Specialty Start Date End Date Jessica Nguyen MD 175 [facility] [address] [place] [phone] PCP - General Internal Medicine 08/21/24
== END 2025-01-08 16:40 | disposition home or self-care (01) ==
LOC: HO.HSM 15:44
PROVIDERS: PCP Internal Medicine; Visit Provider Psychiatry & Neurology Neurology
DX: G20.C Parkinsonism, unspecified (principal); G40.209 Localization-related (focal) (partial) symptomatic epilepsy and epileptic syndromes with complex partial seizures, not intractable, without status epilepticus; G31.83 Neurocognitive disorder with Lewy bodies; F02.B18 Dementia in other diseases classified elsewhere, moderate, with other behavioral disturbance
CPT/HCPCS: 99214

== ENCOUNTER → 2025-01-08 15:44 | Outpatient (BNVA) | payer MEDICARE, MEDICAID, SELFPAY | PROVIDERS: PCP Internal Medicine; Visit Provider Psychiatry & Neurology Neurology | DX: G31.83 Neurocognitive disorder with Lewy bodies (principal); G20.C Parkinsonism, unspecified; F02.B18 Dementia in other diseases classified elsewhere, moderate, with other behavioral disturbance; G40.209 Localization-related (focal) (partial) symptomatic epilepsy and epileptic syndromes with complex partial seizures, not intractable, without status epilepticus | CPT/HCPCS: 99212 ==